=== PATIENT | female | born 1940 | race Caucasian/White ===

== ENCOUNTER 2024-07-04 17:52 | Emergency (ER) | payer MEDICARE, OTHER, SELFPAY ==
[2024-07-04] VITALS (8 sets, daily range): BP systolic 137–159; BP diastolic 77–122; PULSE 67–77; RESP 18–20; TEMP 36.3–36.8; O2SAT 95–99; BMI 22.6
--- NOTE | 2024-07-04 18:23 | CRLHL7_ITS ---
For Patients: As a result of the Century Cures Act, medical imaging exams and procedure reports are released immediately into your electronic medical record. You may view this report before your referring provider. If you have questions, please contact your health care provider. INDICATION: Right lower quadrant pain. TECHNIQUE: CT abdomen and pelvis acquired with 69 cc of Isovue 370 IV contrast. COMPARISON: CT abdomen and pelvis 06/04/2017. FINDINGS: Lower chest: Right lower quadrant pain Liver: Multiple cysts scattered throughout the liver, many of which are unchanged size. Some cysts have decreased in size since the prior exam. No suspicious mass. Gallbladder and bile ducts: Status post cholecystectomy. No abnormal biliary ductal dilatation. Pancreas: Unremarkable. No mass or inflammation. Spleen: Unremarkable. Normal in size. No masses. Adrenal glands: Unchanged small left adrenal nodules. Kidneys: Bilateral parapelvic cysts. Otherwise, unremarkable. GI tract: Moderate sigmoid colon diverticulosis. There is a short segment of small bowel incarcerated within a direct right inguinal hernia with a small volume of surrounding free fluid. There is fluid-filled, borderline dilated small bowel proximal to the hernia, compatible with early/developing small bowel obstruction. The appendix is not visualized. No pneumatosis. Mild mesenteric edema in the right lower quadrant. Vasculature: Normal caliber abdominal aorta with moderate to severe atherosclerotic calcification. Mesenteric arteries are patent. Lymph nodes: No lymphadenopathy. Peritoneum/Abdominal Wall: No free air or significant free fluid. Pelvis: Multiple small calcified fibroids. Bones: Unremarkable for age. IMPRESSION: Short-segment of incarcerated small bowel within a direct right inguinal hernia with findings compatible with early/developing small bowel obstruction. Small volume free fluid about the incarcerated small bowel segment could indicate a degree of strangulation. Recommend surgical consultation. Please note that all CT scans at this facility use dose modulation, iterative reconstruction, and/or weight-based dosing when appropriate to reduce radiation dose to as low as reasonably achievable. Dictated by Joseph Green MD @ 07/04/2024 7:39:34 PM (Electronically Signed)
[2024-07-04 18:47] LABS: Basophils Absolute Auto 0.02 K/uL (0.00-0.30); Basophils Percent Auto 0.3 % (0.0-3.0); Eosinophils Absolute Auto 0.01 K/uL (0.00-0.50); Eosinophils Percent Auto 0.2 % (0.0-7.0); Hematocrit 36.8 % (33.0-51.0); Immature Granulocytes Abs Auto 0.01 K/uL (0.00-0.30); Immature Granulocytes Pct Auto 0.2 %; Lymphocytes Percent Auto 14.5 % (20-44); Mean Corpuscular HGB Conc 33 gm/dL (32-36); Mean Corpuscular Hemoglobin 31 pg (26-34); Mean Corpuscular Volume 96 fL (80-100); Monocytes Percent Auto 6.5 % (0.0-11.0); Neutrophils Percent Auto 78.3 % (42.0-72.0); Platelet Count* 188 K/uL (140-440); RDW Coefficient of Variation % 12.9 % (11.5-15.5); Red Blood Count 3.83 m/uL (4.00-5.20); White Blood Count* 5.85 K/uL (4.50-11.00)
--- NOTE | 2024-07-04 19:01 | ED_ITS ---
HPI - General Adult General Chief complaint: Groin Pain <Maria Del Rosario Mcleod MD - Last Filed: 07/04/24 20:57> Stated complaint: Pain in groin, something popped herniasent by UC <Maria Del Rosario Mcleod MD - Last Filed: 07/04/24 20:57> Time Seen by Provider: 07/04/24 17:56 <Maria Del Rosario Mcleod MD - Last Filed: 07/04/24 20:57> Source: patient <Maria Del Rosario Mcleod MD - Last Filed: 07/04/24 20:57> Mode of arrival: ambulatory <Maria Del Rosario Mcleod MD - Last Filed: 07/04/24 20:57> Limitations: no limitations <Maria Del Rosario Mcleod MD - Last Filed: 07/04/24 20:57> History of Present Illness HPI narrative: 84-year-old female coming in today complaining of abdominal pain that started earlier today. Patient states that the pain is located over the entire abdomen. Nothing seems to make it better or worse. However, shortly prior to presenting to the emergency department she felt a sharp right lower quadrant pain. She is not quite sure how long it lasted but it has subsided now. When she was palpating over the sore area she noticed a lump in the right lower quadrant. She states that it is slightly sore, perhaps a 2/10 in intensity. She states that she felt nauseated earlier today and has any much today. She has not vomited. She denies any constipation or diarrhea, last bowel movement was this morning and was normal. She denies any urinary symptoms such as increased frequency, urgency or dysuria. She denies any blood in her urine or stool. She denies any fevers, no chills. She has been passing gas. Past medical history significant for hyperlipidemia, anxiety, hypothyroidism, diabetes - not insulin dependent. <Maria Del Rosario Mcleod MD - Last Filed: 07/04/24 2 0:57> Related Data Home medications: Home Medications ?Medication ?Instructions ?Recorded ?Confirmed atorvastatin 20 mg tablet 20 mg PO DAILY 04/09/24 04/09/24 bupropion HCl 150 mg 24 hr tablet, 150 mg PO DAILY 04/09/24 04/09/24 extended release cholecalciferol (vitamin D3) 625 625 mcg PO QWEEK 04/09/24 04/09/24 mcg (25,000 unit) capsule levothyroxine 50 mcg tablet 50 mcg PO DAILY 04/09/24 04/09/24 metformin 500 mg tablet,extended 500 mg PO BID 04/09/24 04/09/24 release 24 hr sertraline 50 mg tablet 50 mg PO DAILY 04/09/24 04/09/24 vit C 250 mg-vit E 90 mg-zinc 40 1 tab PO BID 04/09/24 04/09/24 mg-copper 1 [id number] capsule (PreserVision AREDS-2) <Maria Del Rosario Mcleod MD - Last Filed: 07/04/24 20:57> Allergies/adverse reactions: Allergies Allergy/AdvReac Type Severity Reaction Status Date / Time No Known Drug Allergies Allergy Verified 04/09/24 13:39 <Maria Del Rosario Mcleod MD - Last Filed: 07/04/24 20:57> Review of Systems Status of ROS: Reports: 10 or more systems reviewed and unremarkable except as noted in History and below <Maria Del Rosario Mcloed MD - Last Filed: 07/04/24 20:57> [facility] Surgical History: Surgical History (Updated 07/04/24 @ 21:18 by Cheryl Machado MD) History of umbilical hernia repair ?Z98.890 - Other specified postprocedural states (ICD-10) ?Z87.19 - Personal history of other diseases of the digestive system (ICD-10) History of appendectomy ?Z90.49 - Acquired absence of other specified parts of digestive tract (ICD- 10) History of cholecystectomy ?Z90.49 - Acquired absence of other specified parts of digestive tract (ICD- 10) <Maria Del Rosario Mcleod MD - Last Filed: 07/04/24 20:57> Social History: Social History Smoking Status: Former smoker How often do you have a drink containing alcohol: 4 or more times a week How many standard drinks containing alcohol do you have on a typical day: 1 or 2 AUDIT-C Alcohol total score: 4 Non-prescribed substance use: denies use <Maria Del Rosario Mcleod MD - Last Filed: 07/04/24 20:57> Exam Narrative: Exam Narrative: Well-nourished well-developed patient in no acute distress. Alert and oriented. Answers questions appropriately. Mood and affect are appropriate. Thoughts are goal oriented and rational. No tangential or magical thinking noted. Patient speaks in full sentences without needing to catch her breath. She does not appear ill or toxic. HEENT: Normocephalic atraumatic. Pupils are equally round reactive to light. Extraocular muscles are intact. Conjunctivae are moist without any icterus noted. Moist mucous membranes. Neck is soft. Cardiovascular: Heart is regular rate and rhythm S1 and S2 are present without any murmurs. Lungs: Clear to auscultation bilaterally no wheezes rhonchi or rales are appreciated. Patient takes deep breaths without any discomfort. Abdomen: Soft and nontender nondistended with normal bowel sounds. No guarding or rebound. Right lower quadrant mass appreciated- firm, minimal tenderness. Extremities: Bilateral lower extremities are without edema. Skin: Well perfused without any obvious rashes. <Maria Del Rosario Mcleod MD - Last Filed: 07/04/24 20:57> Const: Vital Signs, click to edit/add: Vital Signs - 24 hr 07/04/24 17:57 07/04/24 20:14 07/04/24 20:32 Temperature 98.3 F Pulse Rate 67 Pulse Rate [Left P ulse Oximeter] 73 Respiratory Rate 18 Blood Pressure Blood Pressure [Ri ght Upper Arm] 138/77 Pulse Oximetry 95 99 95 Oxygen Delivery Me thod Room Air 07/04/24 20:35 07/04/24 20:36 07/04/24 20:38 Temperature Pulse Rate 68 70 Pulse Rate [Left P ulse Oximeter] 69 Respiratory Rate 20 Blood Pressure 137/103 H 155/77 H Blood Pressure [Ri ght Upper Arm] 137/103 H Pulse Oximetry 98 95 98 Oxygen Delivery Me thod Room Air 07/04/24 20:42 07/04/24 20:52 Temperature 97.4 F L Pulse Rate 77 Pulse Rate [Left P ulse Oximeter] Respiratory Rate Blood Pressure 159/122 H Blood Pressure [Ri ght Upper Arm] Pulse Oximetry 99 Oxygen Delivery Me thod <Maria Del Rosario Mcleod MD - Last Filed: 07/04/24 20:57> Vital Signs, click to edit/add: Vital Signs - 24 hr 07/04/24 17:57 07/04/24 20:14 07/04/24 20:32 Temperature 98.3 F Pulse Rate 67 Pulse Rate [Left P ulse Oximeter] 73 Respiratory Rate 18 Blood Pressure Blood Pressure [Ri ght Upper Arm] 138/77 Pulse Oximetry 95 99 95 Oxygen Delivery Me thod Room Air 07/04/24 20:35 07/04/24 20:36 07/04/24 20:38 Temperature Pulse Rate 68 70 Pulse Rate [Left P ulse Oximeter] 69 Respiratory Rate 20 Blood Pressure 137/103 H 155/77 H Blood Pressure [Ri ght Upper Arm] 137/103 H Pulse Oximetry 98 95 98 Oxygen Delivery Me thod Room Air 07/04/24 20:42 07/04/24 20:52 Temperature 97.4 F L Pulse Rate 77 Pulse Rate [Left P ulse Oximeter] Respiratory Rate Blood Pressure 159/122 H Blood Pressure [Ri ght Upper Arm] Pulse Oximetry 99 Oxygen Delivery Me thod <Kwame Padilla MD - Last Filed: 07/04/24 21:53> Course Course ED Course: Labs were drawn: CBC is unremarkable. Chemistries are unremarkable. LFTs are normal. Normal CRP. Normal lipase. Abdominal CT showing an incarcerated inguinal hernia. Attempted to reduce it and was unsuccessful. Spoke to Dr. Strickland who requested that we try again. Dr. Moreira attempted to reduce it as well. At this point we started an IV and give the patient a dose of fentanyl which did relax her. Dr. Moreira then attempted to reduce the hernia 1 more time - this time seemed successful. We at this time will repeat the abd CT w/out contrast. Care transferred to Dr. Padilla at this time. <Maria Del Rosario Mcleod MD - Last Filed: 07/04/24 20:57> Vital Signs Vital signs: Initial Vital Signs Temperature 98.3 F 07/04/24 17:57 Temperature Source Temporal Artery Scan 07/04/24 17:57 Pulse Rate 73 07/04/24 17:57 Respiratory Rate 18 07/04/24 17:57 Blood Pressure 138/77 07/04/24 17:57 Blood Pressure Mean 97 07/04/24 17:57 Blood Pressure Position Supine 07/04/24 17:57 Pulse Oximetry 95 07/04/24 17:57 Oxygen Delivery Method Room Air 07/04/24 17:57 Vital Signs Temperature 98.3 F 07/04/24 17:57 Pulse Rate 73 07/04/24 17:57 Respiratory Rate 18 07/04/24 17:57 Blood Pressure 138/77 07/04/24 17:57 Pulse Oximetry 95 07/04/24 17:57 Oxygen Delivery Method Room Air 07/04/24 17:57 Temperature 97.4 F L 07/04/24 20:52 Pulse Rate 77 07/04/24 20:42 Respiratory Rate 20 07/04/24 20:38 Blood Pressure 159/122 H 07/04/24 20:42 Pulse Oximetry 99 07/04/24 20:42 Oxygen Delivery Method Room Air 07/04/24 20:38 <Maria Del Rosario Mcleod MD - Last Filed: 07/04/24 20:57> Initial Vital Signs Temperature 98.3 F 07/04/24 17:57 Temperature Source Temporal Artery Scan 07/04/24 17:57 Pulse Rate 73 07/04/24 17:57 Respiratory Rate 18 07/04/24 17:57 Blood Pressure 138/77 07/04/24 17:57 Blood Pressure Mean 97 07/04/24 17:57 Blood Pressure Position Supine 07/04/24 17:57 Pulse Oximetry 95 07/04/24 17:57 Oxygen Delivery Method Room Air 07/04/24 17:57 Vital Signs Temperature 98.3 F 07/04/24 17:57 Pulse Rate 73 07/04/24 17:57 Respiratory Rate 18 07/04/24 17:57 Blood Pressure 138/77 07/04/24 17:57 Pulse Oximetry 95 07/04/24 17:57 Oxygen Delivery Method Room Air 07/04/24 17:57 Temperature 97.4 F L 07/04/24 20:52 Pulse Rate 77 07/04/24 20:42 Respiratory Rate 20 07/04/24 20:38 Blood Pressure 159/122 H 07/04/24 20:42 Pulse Oximetry 99 07/04/24 20:42 Oxygen Delivery Method Room Air 07/04/24 20:38 <Kwame Padilla MD - Last Filed: 07/04/24 21:53> Medications Administered Medications: Discontinued Medications Generic Name Dose Route Start Last Admin Trade Name Freq PRN Reason Stop Dose Admin Fentanyl 25 mcg 07/04/24 20:10 07/04/24 20:22 Fentanyl 100 Mcg/2 Ml Inj IVP 07/04/24 20:11 25 mcg ONCE ONE Administration <Maria Del Rosario Mcleod MD - Last Filed: 07/04/24 20:57> Discontinued Medications Generic Name Dose Route Start Last Admin Trade Name Jake PRN Reason Stop Dose Admin Fentanyl 25 mcg 07/04/24 20:10 07/04/24 20:22 Fentanyl 100 Mcg/2 Ml Inj IVP 07/04/24 20:11 25 mcg ONCE ONE Administration <Kwame Padilla MD - Last Filed: 07/04/24 21:53> Medical Decision Making [facility] Narrative Medical decision making narrative: Randy -- Received patient at change of shift pending reduction of incarcerated inguinal hernia right side. I did perform this reduction. Patient did report feeling improved. Pending post reduction pelvis CT. Did personally review these images as well; appears to have reduced bowel now. Some edematous change possibly fluid remaining. Discussed with General surgery arriving to evaluate. Confirming anticipated reduction Radiology over-read below INDICATION: Post manual reduction. TECHNIQUE: CT abdomen and pelvis without contrast. COMPARISON: CT abdomen and pelvis from the same day. FINDINGS: There has been interval reduction of the previously seen right direct inguinal hernia. A small volume of free fluid remains in the right inguinal canal. There are a few fluid-filled slightly dilated loops of small bowel in the pelvis. The remainder of the exam is unchanged. IMPRESSION: 1. Interval reduction of the previously seen right direct inguinal hernia. No bowel obstruction visualized. 2. Few fluid-filled, slightly dilated loops of small bowel within the pelvis compatible with residual sequela of the previously seen bowel obstruction. Plan at this point per patient preference will be to return home with abdominal binder. Schedule outpatient surgery after the weekend. <Kwame Padilla MD - Last Filed: 07/04/24 21:53> Medical Records Medical records reviewed: Yes I reviewed the patient's medical records <Kwame Padilla MD - Last Filed: 07/04/24 21:53> Lab Data Lab results reviewed: Yes I reviewed the patient's lab results <Kwame Padilla MD - Last Filed: 07/04/24 21:53> Labs: Lab Results 07/04/24 07/04/24 Range/Units 18:30 18:37 WBC 5.85 (4.50-11.00) K/uL RBC 3.83 L (4.00-5.20) m/uL Hgb 12.0 (12.0-16.0) gm/dL Hct 36.8 (33.0-51.0) % MCV 96 (80-100) fL MCH 31 (26-34) pg MCHC 33 (32-36) gm/dL RDW Coeff of Gertrudis 12.9 (11.5-15.5) % Plt Count 188 (140-440) K/uL Neut % (Auto) 78.3 H (42.0-72.0) % Lymph % (Auto) 14.5 L (20-44) % Grundy % (Auto) 6.5 (0.0-11.0) % Eos % (Auto) 0.2 (0.0-7.0) % Baso % (Auto) 0.3 (0.0-3.0) % Neut # (Auto) 4.60 (1.7-7.0) K/uL Lymph # (Auto) 0.80 L (0.90-2.90) K/uL Grundy # (Auto) 0.40 (0.00-0.90) K/UL Eos # (Auto) 0.01 (0.00-0.50) K/uL Baso # (Auto) 0.02 (0.00-0.30) K/uL Abs Immat Gran (auto) 0.01 (0.00-0.30) K/uL Imm/Tot Granulo (auto) 0.2 % Sodium 134 L (135-149) mmol/L Potassium 3.8 (3.6-5.1) mmol/L Chloride 105 (96-114) mmol/L Carbon Dioxide 24 (20-32) mmol/L Anion Gap 5 L (7-15) mEq/L BUN 12 (7-30) mg/dL Creatinine 0.7 (0.5-1.5) mg/dL Estimated Creat Clear 37.80 Estimated GFR 84 ml/min Glucose 119 H (60-115) mg/dL Calcium 9.0 (8.4-10.6) mg/dL Total Bilirubin 0.5 (0.1-1.5) mg/dL Direct Bilirubin 0.0 (0.0-0.5) mg/dL AST 21 (12-35) U/L ALT 13 (4-35) U/L Alkaline Phosphatase 82 (40-150) U/L C-Reactive Protein < 0.5 L (0.5-1.0) mg/dL Total Protein 6.2 (6.0-8.3) g/dL Albumin 4.0 (3.3-5.0) g/dL Lipase 83 (23-300) U/L POC Creatinine 0.8 (0.6-1.3) mg/dl <Maria Del Rosario Mcleod MD - Last Filed: 07/04/24 20:57> Lab Results 07/04/24 07/04/24 Range/Units 18:30 18:37 WBC 5.85 (4.50-11.00) K/uL RBC 3.83 L (4.00-5.20) m/uL Hgb 12.0 (12.0-16.0) gm/dL Hct 36.8 (33.0-51.0) % MCV 96 (80-100) fL MCH 31 (26-34) pg MCHC 33 (32-36) gm/dL RDW Coeff of Gertrudis 12.9 (11.5-15.5) % Plt Count 188 (140-440) K/uL Neut % (Auto) 78.3 H (42.0-72.0) % Lymph % (Auto) 14.5 L (20-44) % Grundy % (Auto) 6.5 (0.0-11.0) % Eos % (Auto) 0.2 (0.0-7.0) % Baso % (Auto) 0.3 (0.0-3.0) % Neut # (Auto) 4.60 (1.7-7.0) K/uL Lymph # (Auto) 0.80 L (0.90-2.90) K/uL Grundy # (Auto) 0.40 (0.00-0.90) K/UL Eos # (Auto) 0.01 (0.00-0.50) K/uL Baso # (Auto) 0.02 (0.00-0.30) K/uL Abs Immat Gran (auto) 0.01 (0.00-0.30) K/uL Imm/Tot Granulo (auto) 0.2 % Sodium 134 L (135-149) mmol/L Potassium 3.8 (3.6-5.1) mmol/L Chloride 105 (96-114) mmol/L Carbon Dioxide 24 (20-32) mmol/L Anion Gap 5 L (7-15) mEq/L BUN 12 (7-30) mg/dL Creatinine 0.7 (0.5-1.5) mg/dL Estimated Creat Clear 37.80 Estimated GFR 84 ml/min Glucose 119 H (60-115) mg/dL Calcium 9.0 (8.4-10.6) mg/dL Total Bilirubin 0.5 (0.1-1.5) mg/dL Direct Bilirubin 0.0 (0.0-0.5) mg/dL AST 21 (12-35) U/L ALT 13 (4-35) U/L Alkaline Phosphatase 82 (40-150) U/L C-Reactive Protein < 0.5 L (0.5-1.0) mg/dL Total Protein 6.2 (6.0-8.3) g/dL Albumin 4.0 (3.3-5.0) g/dL Lipase 83 (23-300) U/L POC Creatinine 0.8 (0.6-1.3) mg/dl <Kwame Padilla MD - Last Filed: 07/04/24 21:53> Imaging Data CT scan - abdomen: Attestation: I have reviewed the pertinent imaging results. <Maria Del Rosario Mcleod MD - Last Filed: 07/04/24 20:57> Radiologist's impression: TECHNIQUE: CT abdomen and pelvis acquired with 69 cc of Isovue 370 IV contrast. COMPARISON: CT abdomen and pelvis 06/04/2017. FINDINGS: Lower chest: Right lower quadrant pain Liver: Multiple cysts scattered throughout the liver, many of which are unchanged size. Some cysts have decreased in size since the prior exam. No suspicious mass. Gallbladder and bile ducts: Status post cholecystectomy. No abnormal biliary ductal dilatation. Pancreas: Unremarkable. No mass or inflammation. Spleen: Unremarkable. Normal in size. No masses. Adrenal glands: Unchanged small left adrenal nodules. Kidneys: Bilateral parapelvic cysts. Otherwise, unremarkable. GI tract: Moderate sigmoid colon diverticulosis. There is a short segment of small bowel incarcerated within a direct right inguinal hernia with a small volume of surrounding free fluid. There is fluid-filled, borderline dilated small bowel proximal to the hernia, compatible with early/developing small bowel obstruction. The appendix is not visualized. No pneumatosis. Mild mesenteric edema in the right lower quadrant. Vasculature: Normal caliber abdominal aorta with moderate to severe atherosclerotic calcification. Mesenteric arteries are patent. Lymph nodes: No lymphadenopathy. Peritoneum/Abdominal Wall: No free air or significant free fluid. Pelvis: Multiple small calcified fibroids. Bones: Unremarkable for age. IMPRESSION: Short-segment of incarcerated small bowel within a direct right inguinal hernia with findings compatible with early/developing small bowel obstruction. Small volume free fluid about the incarcerated small bowel segment could indicate a degree of strangulation. Recommend surgical consultation. <Maria Del Rosario Mcleod MD - Last Filed: 07/04/24 20:57> Discharge Plan Discharge Clinical Impression: Incarcerated right inguinal hernia <Maria Del Rosario Mcleod MD - Last Filed: 07/04/24 20:57> Additional Instructions: Expect a call regarding follow-up for surgery. Wear this abdominal binder as per Dr. Machado's recommendations. Return for new and painful swelling, associated vomiting, marked increase in pain, fever. <Maria Del Rosario Mcleod MD - Last Filed: 07/04/24 20:57> Prescriptions: No Action bupropion HCl 150 mg tablet extended release 24 hr 150 mg PO DAILY sertraline 50 mg tablet 50 mg PO DAILY metformin 500 mg tablet extended release 24 hr 500 mg PO BID levothyroxine 50 mcg tablet 50 mcg PO DAILY atorvastatin 20 mg tablet 20 mg PO DAILY PreserVision AREDS-2 250-90-40-1 mg capsule 1 tab PO BID cholecalciferol (vitamin D3) 625 mcg (25,000 unit) capsule 625 mcg PO QWEEK <Maria Del Rosario Mcleod MD - Last Filed: 07/04/24 20:57> Follow Up/Referrals: Renzo Richardson MD [Primary Care Provider] - <Maria Del Rosario Mcleod MD - Last Filed: 07/04/24 20:57> Stand Alone Forms: MyHealth Info Instructions <Maria Del Rosario Mcleod MD - Last Filed: 07/04/24 20:57>
[2024-07-04 19:02] LABS: Creatinine, Point-of-Care* 0.8 mg/dl (0.6-1.3)
[2024-07-04 19:03] LABS: Chloride* 105 mmol/L (96-114); Slide Review Reflex No
[2024-07-04 19:04] LABS: Potassium* 3.8 mmol/L (3.6-5.1); Sodium* 134 mmol/L (135-149)
[2024-07-04 19:06] LABS: Creatinine* 0.7 mg/dL (0.5-1.5); Estimated Glomerular Filt Rate 84 ml/min
[2024-07-04 19:07] LABS: Alanine Aminotransferase* 13 U/L (4-35); Alkaline Phosphatase* 82 U/L (40-150); Anion Gap 5 mEq/L (7-15); Aspartate Amino Transferase* 21 U/L (12-35); Bilirubin Total* 0.5 mg/dL (0.1-1.5); Blood Urea Nitrogen* 12 mg/dL (7-30); Carbon Dioxide* 24 mmol/L (20-32); Glucose* 119 mg/dL (60-115); Lipase* 83 U/L (23-300); Total Protein* 6.2 g/dL (6.0-8.3)
[2024-07-04 19:10] LABS: C Reactive Protein* < 0.5 mg/dL (0.5-1.0)
--- OUTSIDE RECORDS SUMMARY | 2024-07-04 19:18 | XMS_ITS | Clinical Summary ---
Author Organization [employer] [facility] Address [place], [place] [address] Care Team Providers Care Fish Trapper Name Role Phone Renzo Richardson MD Primary Care Provider [phone] Allergies No known active allergies Medications Medication Sig Dispensed Refills Start Date End Date Status Vit A,C,Q-Hjdd-Xjoajo (PRESERVISION AREDS) [id number] sexd-ri-zosu capIndications:Macul ar degeneration Take by mouth. 0 06/03/2017 Activ e loperamide (IMODIUM A-D) 2 mg tabletIndications:Lo ose stools Take 2 mg daily as needed (usually takes 2 mg every other day) 0 05/03/2018 Active cholecalciferol (VITAMIN D-3) 2,000 unit capsule Take 1 capsule by mouth once daily. 0 11/07/2020 Active atorvastatin (LIPITOR) 20 mg tabletIndications:Ot her hyperlipidemia Take 1 Tablet (20 mg) by mouth once daily. 90 Tablet 3 08/10/2023 Active buPROPion (WELLBUTRIN XL) 150 mg Extended-Release tabletIndications:Dy sthymic disorder Take 1 Tablet (150 mg) by mouth every morning. 90 Tablet 3 08/10/2023 Active Additional Information Patient taking differently:150 mg OralDAILY, Reported on 07/04/2024 ferrous sulfate 325 mg delayed release tabletIndications:An emia of unknown etiology Take 1 Tablet (325 mg) by mouth once daily with a meal. 90 Tablet 3 08/10/2023 Active levothyroxine (SYNTHROID) 50 mcg tabletIndications:Hy pothyroidism, unspecified type Take 1 Tablet (50 mcg) by mouth before breakfast. 90 Tablet 3 08/10/2023 Active metFORMIN (GLUCOPHAGE XR) 500 mg Extended-Release tabletIndications:Di abetes mellitus without complication (HC) Take 2 Tablets (1,000 mg) by mouth once daily. 180 Tablet 3 08/10/2023 Active sertraline (ZOLOFT) 50 mg tabletIndications:Dy sthymic disorder Take 1 Tablet (50 mg) by mouth every morning. 90 Tablet 3 08/10/2023 Active celecoxib (CELEBREX) 200 mg capsuleIndications:K nee pain, unspecified chronicity, unspecified laterality TAKE ONE CAPSULE BY MOUTH DAILY NEEDED 30 Capsule 12/10/2023 Active omeprazole (PRILOSEC) 20 mg Delayed-Release capsuleIndications:G astroesophageal reflux disease, unspecified whether esophagitis present Take 1 Capsule (20 mg) by mouth once daily before a meal. 90 Capsule 1 03/19/2024 Active clotrimazole 1 % ointIndications:Cand idal intertrigo Apply topically to affected area(s). 56.7 g 1 07/04/2024 Active clotrimazole (LOTRIMIN) 1 % creamIndications:Can didal intertrigo Apply topically to affected area(s) two times daily. 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 Responded to Indocin. Anemia of unknown etiology 05/03/2018 Anxiety 10/05/2017 Vitamin D deficiency 06/11/2016 Acquired hypothyroidism 04/15/2016 Colon polyps 04/30/2008 Overview (10/07/2020): Colonoscopy 06/2009 polyps repeat in 3 years Colonoscopy 06/2012 polyp repeat in 5 years Colonoscopy 06/2017 polyps repeat in 3 years Colonoscopy 09/2020 multiple polyps, repeat in 3 years Esophageal reflux 04/14/2007 Overview (06/24/2017): EGD 06/2017 normal Osteoarthrosis, unspecified whether generalized or localized, unspecified site 04/14/2007 Other and unspecified hyperlipidemia 04/14/2007 Dysthymic disorder 04/14/2007 Overview (04/14/2007): Depression with anxiety DIABETES TYPE II WITHOUT COMPLICATIONS OR UNSPEC IFIED 01/17/2004 Encounters Date Type Department Care Team Description 07/04/2024 10:25 AM CDT Office Visit [facility] [address] [place] [address] Nichol Gonzales MD Rash (Under Left breast, zinc oxide is helping for itching, daughter has the same issue, spread to upper abdomen/ ) 07/04/2024 Nurse Triage [facility] [address] [place] [address] Renzo Richardson MD Pelvis Pain/problem 07/04/2024 Telephone [facility] [address] [place] [address] Nichol Gonzlaes MD Medication Management (clotrimazole 1 % oint) 07/04/2024 Travel 06/29/2024 11:05 AM CDT Nurse/Clinic Staff Only [facility] [address] [place] [address] Immunization/Injecti on; Immunization/Injecti on 06/29/2024 Travel from Last 3 Months Immunizations Name Administration Dates Next Due AMB Influenza, IIV3 (Age >=3 years)(Flu Clinic Only) 06/19/2012,08/21/2008 AMB Influenza, IIV4 PF (=>6 mos Flulaval,Fluzone Fluarix)(Flu Clinic Only) 06/13/2015 Amb Influenza, Inact (High-d ose) (Flu Clinic Only) 08/22/2014 COVID-19 VACCINE SPIKEVAX (M ODERNA 50MCG/0.5ML) 12YO+ PFS 06/29/2024,08/10/2023 COVID-19 vaccine (CleverSet-Bio NTech 30mcg/0.3mL) 12YO+ BIVALENT PF, MDV 09/20/2022 COVID-19 vaccine (MyOtherDrive 30mcg/0.3mL) PF, MDV 07/08/2021,11/05/2020,10/15/2020 Influenza A (H1N1), Inactivated 09/29/2009 Influenza A (H1N1), Inactiva lowell (Age >=3 Years) 09/29/2009 Influenza, High-dose Inactivated 05/13/2017,05/15,08/22/2014 Influenza, IIV3 (Age 6-35 mos) 05/24/2011,2009 Influenza, IIV3 (Age >=3 years) 06/06/20 13,06/19/2012,05/24/2011,2010,09/29/2009,08/21/2008,07/20/2007,1 ,07/19/2005,06/24/2004 Influenza, IIV4 06/13/2015 Influenza, Inactivated AIIV4 (Age 65+ Years) Preserv Free 08/10/2023,07/21/2022,07/08/2021,2019 Influenza, Inactivated IIV3 (Age 65+ Years) Preserv Free 06/29/2024,06/25/2019,07/17/2018 Pneumococcal Poly,23-Valent (Pneumovax) 06/08/2017 Pneumococcal conj 13-Valent (Prevnar 13) 06/11/2016 Td (Age >=7 Years) 04/09/2005 Td, Preservative Free (age > = 7 Years) 04/09/2005 Zoster (Zostavax-ZVL, live) 09/10/2013 Family History Medical History Relation Name Comments Heart Disease Brother 1 right side hea rt failure--02/2008; at 81 of CHF exac Dementia Brother 2 Heart Disease Brother 2 another brothe r who has CABG; One brother with a stent Kidney cancer Brother 2 of Kidney cancer at 85/ Arthritis Father Cancer Father Pancreatic Heart Disease Father of MD at 67 Arthritis Mother Other Mother Primary Biliary Cirrhosis at 79 Cancer-breast No Family History Relation Name Status Comments Brother 1 Brother 2 Father Mother Social History Tobacco Use Types Packs/Day Years Used Date Smoking Tobacco: Former Cigarettes 1 40 1 09/12/1957 - 07/13/1998 Smokeless Tobacco: Never Tobacco Cessation:Counseling Given: Not Answered Alcohol Use Standard Drinks/Week Comments Not Currently 0 (1 standard drink = 0.6 oz pur e alcohol) Mainly beer PHQ-2 Answer Date Recorded PHQ-2 TOTAL SCORE 1 08/10/2023 Social Connections Answer Date Recorded Frequency of Communication with Friends and Fami ly 0 06/02/2023 Financial Resource Strain Answer Date R ecorded Difficulty of Paying Living Expenses 3 06/02/2023 Difficulty of Paying Living Expenses Not on file 06/02/2023 Food Insecurity Answer Date Recorded Worried About Running Out of Food in the Last Ye ar 1 06/02/2023 Transportation Needs Answer Date Record ed Lack of Transportation (Medical) 1 06/02/2023 Housing Stability Answer Date Recorded Unable to Pay for Housing in the Last Year 1 06/02/2023 Sex and Gender Information Value Date Recorded Sex Assigned at Female 07/07/2021 9:35 AM CDT Gender Identity Not on file Sexual Orientation Not on file Obstetrics History Last Filed Vital Signs Vital Sign Reading Time Taken Comments Blood Pressure 110/65 07/04/2024 10:31 AM CDT Pulse 80 07/04/2024 10:31 AM CDT Temperature 36.8 ??C (98.3 ??F) 07/04/2024 10:31 AM C DT Respiratory Rate - - Oxygen Saturation 98% 07/04/2024 10:31 AM CDT Inhaled Oxygen Concentration - - Weight 63.2 kg (139 lb 6.4 oz) 07/04/2024 10:31 AM CDT Height 165.7 cm (5' 5.24) 08/10/2023 1:22 PM CS T Body Mass Index 23.03 08/10/2023 1:22 PM 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 Plan of Treatment Health Maintenance Due Date Last Done Comments Tdap 1951 RSV vaccine for adults or (1 - 1-dose 75+ series) 2013 Zoster (shingles) series for age 50+ (2 of 3) 11/05/2013 09/10/2013 Tetanus booster 04/09/2015 04/09/2005, 04/09/2005 BMI (ht and wt on same day) for age 18+ 08/10/2024 08/10/2023, 01/01/2022, 12/02/2021, Additional history exists Depression screening for age 12+ 08/10/2024 08/10/2023, 01/28/2023, 09/21/2022, Additional history exists Medicare Wellness for age 65+ 08/10/2024, 12/02/2021, 06/01/2019, Additional history exists DEXA/DXA scan for age 65+ Completed 02/11/2009 Pneumococcal series for age 65+ Completed 7, 06/11/2016 COVID-19 vaccine series Completed 06/29/20 24, 08/10/2023, 09/20/2022, Additional history exists Influenza for age 65+ Completed 06/29/2024 , 08/10/2023, 07/21/2022, Additional history exists Procedures Procedure Name Priority Date/Time Associated Diagnosis Comments XR DXA BONE DENSITY 2 SITES AXIAL Routine 02/11/2009 9:08 AM CDT Osteopenia from Last 3 Months or Most Recently Relevant to Health Maintenance Results * XR DEXA BONE DENSITY 2 SITES (02/11/2009 9:08 AM CDT) Anatomical Region Laterality Modality Spine, HIPS, HIPL, HIPR Other 02/11/2009 9:08 AM CDT Narrative 02/14/2009 1:58 PM CDT Please see scanned document for results of this study. Procedure Note Celine Kandy D - 02/14/2009 Please see scanned document for results of this study. Renzo Richardson MD DEXA from Last 3 Months or Most Recently Relevant to Health Maintenance Care Teams Fish Trapper Relationship Specialty Start Date End Date Renzo Richardson MD [address] [place] [address] [facility] - General 02/17/06
[2024-07-04] MEDS: fentaNYL 100 MCG/2 ML inj 25 MCG IVP (20:22)
--- NOTE | 2024-07-04 20:46 | CRLHL7_ITS ---
For Patients: As a result of the Century Cures Act, medical imaging exams and procedure reports are released immediately into your electronic medical record. You may view this report before your referring provider. If you have questions, please contact your health care provider. INDICATION: Post manual reduction. TECHNIQUE: CT abdomen and pelvis without contrast. COMPARISON: CT abdomen and pelvis from the same day. FINDINGS: There has been interval reduction of the previously seen right direct inguinal hernia. A small volume of free fluid remains in the right inguinal canal. There are a few fluid-filled slightly dilated loops of small bowel in the pelvis. The remainder of the exam is unchanged. IMPRESSION: 1. Interval reduction of the previously seen right direct inguinal hernia. No bowel obstruction visualized. 2. Few fluid-filled, slightly dilated loops of small bowel within the pelvis compatible with residual sequela of the previously seen bowel obstruction. Please note that all CT scans at this facility use dose modulation, iterative reconstruction, and/or weight-based dosing when appropriate to reduce radiation dose to as low as reasonably achievable. Dictated by Joseph Green MD @ 07/04/2024 9:41:44 PM (Electronically Signed)
--- NOTE | 2024-07-04 20:54 | CRLHL7_ITS ---
For Patients: As a result of the Century Cures Act, medical imaging exams and procedure reports are released immediately into your electronic medical record. You may view this report before your referring provider. If you have questions, please contact your health care provider. INDICATION: Pain. TECHNIQUE: Chest 1 view. COMPARISON: CT abdomen and pelvis from the same day. FINDINGS: Cardiovascular and mediastinum: Heart size and vasculature are normal in caliber and appearance. Lungs and pleural spaces: Lungs are clear. No pleural effusion, or pneumothorax. Bones and soft tissues: Unremarkable for age. IMPRESSION: No evidence of an acute pulmonary process. Dictated by Joseph Green MD @ 07/04/2024 9:33:42 PM (Electronically Signed)
--- NOTE | 2024-07-04 21:13 | P.GSCN_ITS ---
History of Present Illness Consult details Date Seen: 07/04/24 Consult date: 07/04/24 Narrative: 84-year-old female presented to emergency room with right groin mass. Patient felt great when she woke up in the morning and around lunchtime felt crampy lower abdominal pain. She felt hungry and had a sandwich around 2:30 p.m.. She felt that her crampy pain has improved but she was feeling her right groin for some reason and felt a bulge in the right groin. She was not passing gas at home but in the emergency room past gas. She has not had anything like this before. She was not aware of having hernia. I personally reviewed her workup in the emergency room. She was found to have normal WBC. An abdominal CT was obtained that showed an incarcerated right inguinal hernia containing a knuckle of small intestine. There was also small fluid in the right inguinal area. The emergency room doctors attempted to reduce this hernia several times. Review of Systems Narrative: General: no fevers HENT: no problems swallowing CV: no shortness of breath Resp: no cough GI: No nausea, vomiting, abdominal pain : no dysuria, no increased urinary frequency, no hematuria Skin: no new rashes Musculoskeletal: no back pain Neuro: no muscle weakness Psyche: no depression, no anxiety PFSH PFSH Surgical History (Updated 07/04/24 @ 21:18 by Cheryl Machado MD) History of umbilical hernia repair ?Z98.890 - Other specified postprocedural states (ICD-10) ?Z87.19 - Personal history of other diseases of the digestive system (ICD-10) History of appendectomy ?Z90.49 - Acquired absence of other specified parts of digestive tract (ICD- 10) History of cholecystectomy ?Z90.49 - Acquired absence of other specified parts of digestive tract (ICD- 10) Social History Smoking Status: Former smoker How often do you have a drink containing alcohol: 4 or more times a week How many standard drinks containing alcohol do you have on a typical day: 1 or 2 AUDIT-C Alcohol total score: 4 Non-prescribed substance use: denies use Meds Home Medications and Allergies Home Medications ?Medication ?Instructions ?Recorded ?Confirmed ?Type atorvastatin 20 mg tablet 20 mg PO DAILY 04/09/24 04/09/24 History bupropion HCl 150 mg 24 hr tablet, 150 mg PO DAILY 04/09/24 04/09/24 History extended release cholecalciferol (vitamin D3) 625 625 mcg PO QWEEK 04/09/24 04/09/24 History mcg (25,000 unit) capsule levothyroxine 50 mcg tablet 50 mcg PO DAILY 04/09/24 04/09/24 History metformin 500 mg tablet,extended 500 mg PO BID 04/09/24 04/09/24 History release 24 hr sertraline 50 mg tablet 50 mg PO DAILY 04/09/24 04/09/24 History vit C 250 mg-vit E 90 mg-zinc 40 1 tab PO BID 04/09/24 04/09/24 History mg-copper 1 te-wzjdat-axrqqh capsule (PreserVision AREDS-2) Allergies Allergy/AdvReac Type Severity Reaction Status Date / Time No Known Drug Allergies Allergy Verified 04/09/24 13:39 Exam Narrative: Exam Narrative: General appearance: Alert, cooperative, and in no distress Pulmonary: Chest symmetric, lungs clear bilaterally Cardiovascular Heart: Regular rate and rhythm, S1, S2, no murmurs/rubs/gallops Gastrointestinal Abdominal: soft, not distended, not tender to palpation or percussion. In the right inguinal area there is soft tissue swelling noted over the lateral inguinal canal but no masses palpable. Skin: Normal skin color, texture, and turgor. No rashes or lesions. Psychiatric: Alert, cooperative, normal affect. Const: Vital Signs, click to edit/add: Vital Signs - 24 hr 07/04/24 17:57 07/04/24 20:14 07/04/24 20:32 Temperature 98.3 F Pulse Rate 67 Pulse Rate [Left P ulse Oximeter] 73 Respiratory Rate 18 Blood Pressure Blood Pressure [Ri ght Upper Arm] 138/77 Pulse Oximetry 95 99 95 Oxygen Delivery Me thod Room Air 07/04/24 20:35 07/04/24 20:36 07/04/24 20:38 Temperature Pulse Rate 68 70 Pulse Rate [Left P ulse Oximeter] 69 Respiratory Rate 20 Blood Pressure 137/103 H 155/77 H Blood Pressure [Ri ght Upper Arm] 137/103 H Pulse Oximetry 98 95 98 Oxygen Delivery Me thod Room Air 07/04/24 20:42 07/04/24 20:52 Temperature 97.4 F L Pulse Rate 77 Pulse Rate [Left P ulse Oximeter] Respiratory Rate Blood Pressure 159/122 H Blood Pressure [Ri ght Upper Arm] Pulse Oximetry 99 Oxygen Delivery Me thod Results Labs Labs: Abnormal lab results 07/04/24 Range/Units 18:37 RBC 3.83 L (4.00-5.20) m/uL Neut % (Auto) 78.3 H (42.0-72.0) % Lymph % (Auto) 14.5 L (20-44) % Lymph # (Auto) 0.80 L (0.90-2.90) K/uL Sodium 134 L (135-149) mmol/L Anion Gap 5 L (7-15) mEq/L Glucose 119 H (60-115) mg/dL C-Reactive Protein < 0.5 L (0.5-1.0) mg/dL Diabetes panel 07/04/24 Range/Units 18:37 Sodium 134 L (135-149) mmol/L Potassium 3.8 (3.6-5.1) mmol/L Chloride 105 (96-114) mmol/L Carbon Dioxide 24 (20-32) mmol/L BUN 12 (7-30) mg/dL Creatinine 0.7 (0.5-1.5) mg/dL Glucose 119 H (60-115) mg/dL Calcium 9.0 (8.4-10.6) mg/dL AST 21 (12-35) U/L ALT 13 (4-35) U/L Alkaline Phosphatase 82 (40-150) U/L Total Protein 6.2 (6.0-8.3) g/dL Albumin 4.0 (3.3-5.0) g/dL Calcium panel 07/04/24 Range/Units 18:37 Calcium 9.0 (8.4-10.6) mg/dL Albumin 4.0 (3.3-5.0) g/dL Pituitary panel 07/04/24 Range/Units 18:37 Sodium 134 L (135-149) mmol/L Potassium 3.8 (3.6-5.1) mmol/L Chloride 105 (96-114) mmol/L Carbon Dioxide 24 (20-32) mmol/L BUN 12 (7-30) mg/dL Creatinine 0.7 (0.5-1.5) mg/dL Glucose 119 H (60-115) mg/dL Calcium 9.0 (8.4-10.6) mg/dL Adrenal panel 07/04/24 Range/Units 18:37 Sodium 134 L (135-149) mmol/L Potassium 3.8 (3.6-5.1) mmol/L Chloride 105 (96-114) mmol/L Carbon Dioxide 24 (20-32) mmol/L BUN 12 (7-30) mg/dL Creatinine 0.7 (0.5-1.5) mg/dL Glucose 119 H (60-115) mg/dL Calcium 9.0 (8.4-10.6) mg/dL Total Bilirubin 0.5 (0.1-1.5) mg/dL AST 21 (12-35) U/L ALT 13 (4-35) U/L Alkaline Phosphatase 82 (40-150) U/L Total Protein 6.2 (6.0-8.3) g/dL Albumin 4.0 (3.3-5.0) g/dL All other labs normal. Progress Note:A&P Assessment and plan (1) Incarcerated right inguinal hernia: Status: Acute Assessment and Plan: 84-year-old female presented to emergency room with incarcerated right inguinal hernia. I discussed with the patient the etiology of hernias and their natural progression. Patient's hernia was reduced in the emergency room after multiple attempts. Patient's clinical exam currently is without the right inguinal bulge. We obtained a repeat CT scan that shows some fluid in the right inguinal area with reduced bowel. The options of discharge to home versus observation in the hospital overnight were discussed with the patient. Patient elected to go home tonight. I recommended to avoid strenuous activity and heavy lifting. Patient should apply ice over the right groin. We also wrapped her lower abdomen with an Salas wrap to remind her to be vigilant about heavy lifting. We will contact the patient tomorrow to schedule her for surgery next week.
== END 2024-07-04 22:06 | disposition home or self-care (01) ==
PROVIDERS: Family Medicine; Emergency Provider Family Medicine; PCP Family Medicine
DX: K40.31 Unilateral inguinal hernia, with obstruction, without gangrene, recurrent (principal)
CPT/HCPCS: 36415; 71045; 74176; 74177; 80048; 80076; 81001; 82565; 83690; 85025; 86140; 87086; 94761; 99284; J3010; Q9967

== ENCOUNTER 2024-07-09 07:59 | Day surgery (SDC) | payer MEDICARE, OTHER, SELFPAY ==
--- OUTSIDE RECORDS SUMMARY | 2024-07-09 08:03 | XMS_ITS | Clinical Summary ---
Author Organization [facility] Address [place], [place] [address] Care Team Providers Care Loading Unit Tool Setter Name Role Phone Renzo Richardson MD Primary Care Provider [phone]- [phone] Allergies No known active allergies Medications Medication Sig Dispensed Refills Start Date End Date Status Vit A,C,F-Ylid-Khxtza (PRESERVISION AREDS) 14320-182-200 szuo-wu-wloa capIndications:Macu lar degeneration Take by mouth. 0 06/03/2017 Acti ve loperamide (IMODIUM A-D) 2 mg tabletIndications:L oose stools Take 2 mg daily as needed (usually takes 2 mg every other day) 0 05/03/2018 Active cholecalciferol (VITAMIN D-3) 2,000 unit capsule Take 1 capsule by mouth once daily. 0 11/07/2020 Active atorvastatin (LIPITOR) 20 mg tabletIndications:O ther hyperlipidemia Take 1 Tablet (20 mg) by mouth once daily. 90 Tablet 3 08/10/2023 Active buPROPion (WELLBUTRIN XL) 150 mg Extended-Release tabletIndications:D ysthymic disorder Take 1 Tablet (150 mg) by mouth every morning. 90 Tablet 3 08/10/2023 Active Additional Information Patient taking differently:150 mg OralDAILY, Reported on 07/04/2024 ferrous sulfate 325 mg delayed release tabletIndications:A nemia of unknown etiology Take 1 Tablet (325 mg) by mouth once daily with a meal. 90 Tablet 3 08/10/2023 Active levothyroxine (SYNTHROID) 50 mcg tabletIndications:H ypothyroidism, unspecified type Take 1 Tablet (50 mcg) by mouth before breakfast. 90 Tablet 3 08/10/2023 Active metFORMIN (GLUCOPHAGE XR) 500 mg Extended-Release tabletIndications:D iabetes mellitus without complication (HC) Take 2 Tablets (1,000 mg) by mouth once daily. 180 Tablet 3 08/10/2023 Active sertraline (ZOLOFT) 50 mg tabletIndications:D ysthymic disorder Take 1 Tablet (50 mg) by mouth every morning. 90 Tablet 3 08/10/2023 Active clotrimazole 1 % ointIndications:Can didal intertrigo Apply topically to affected area(s). 56.7 g 1 07/04/2024 Active clotrimazole (LOTRIMIN) 1 % creamIndications:Ca ndidal intertrigo Apply topically to affected area(s) two times daily. Under (L) breast 45 g 1 07/04/2024 Active cyanocobalamin (Vitamin B-12) 5,[address] under the tongue once daily. 07/06/2024 Active celecoxib (CELEBREX) 200 mg capsuleIndications: Knee pain, unspecified chronicity, unspecified laterality TAKE ONE CAPSULE BY MOUTH DAILY NEEDED 30 Capsule 12/10/2023 4 Discontinu ed(*Patien t states no longer taking) omeprazole (PRILOSEC) 20 mg Delayed-Release capsuleIndications: Gastroesophageal reflux disease, unspecified whether esophagitis present Take 1 Capsule (20 mg) by mouth once daily before a meal. 90 Capsule 1 03/19/2024 4 Discontinu ed(*Patien t states no longer taking) Active Problems Problem Noted Date Diagnosed Date [...] Encounters Date Type Department Care Team Description 07/06/2024 3:10 PM CDT Preop Visit [facility] [address] [place] [address] Renzo Richardson MD Preoperative Exam (DOS 07/09/24 Dr. Machado, Hernia) 07/06/2024 Travel 07/05/2024 Orders Only [facility] [address] [place] [address] Cheryl Machado MD <No scans attached> 07/04/2024 10:25 AM CDT Office Visit [facility] [address] [place] [address] Nichol Gonzales MD Rash (Under Left breast, zinc oxide is helping for itching, daughter has the same issue, spread to upper abdomen/ ) 07/04/2024 Orders Only [facility] Scanner 1 scan: (1-Ord) [facility], ABDOMEN PELVIS WO, 07/04/2024 07/04/2024 Orders Only [facility] Scanner 1 scan: (1-Ord) [facility], XR CHEST 1V, 07/04/2024 07/04/2024 Orders Only [facility] Scanner 1 scan: (1-Ord) [facility], ABDOMEN PELVIS W CON, 07/04/2024 07/04/2024 Nurse Triage [facility] [address] [place] [address] Renzo Richardson MD Pelvis Pain/problem 07/04/2024 Telephone [facility] [address] [place] [address] Nichol Gonzales MD Medication Management (clotrimazole 1 % oint) 07/04/2024 Travel 06/29/2024 11:05 AM CDT Nurse/Clinic Staff Only [facility] [address] [place] [address] Immunization/Injectio n; Immunization/Injectio n 06/29/2024 Travel from Last 3 Months Immunizations Name Administration Dates Next Due AMB Influenza, IIV3 (Age >=3 years)(Flu Clinic Only) 06/19/2012,08/21/2008 AMB Influenza, IIV4 PF (=>6 mos Flulaval,Fluzone Fluarix)(Flu Clinic Only) 06/13/2015 Amb Influenza, Inact (High-d ose) (Flu Clinic Only) 08/22/2014 COVID-19 VACCINE SPIKEVAX (M ODERNA 50MCG/0.5ML) 12YO+ PFS 06/29/2024,08/10/2023 COVID-19 vaccine (Minekey NTech 30mcg/0.3mL) 12YO+ BIVALENT PF, MDV 09/20/2022 COVID-19 vaccine (Onyvax-Bio NTech 30mcg/0.3mL) PF, MDV 07/08/2021,11/05/2020,10/15/2020 Influenza A (H1N1), Inactivated 09/29/2009 Influenza A (H1N1), Inactiva lowell (Age >=3 Years) 09/29/2009 Influenza Virus, Unspecified 08/10/2023, 07/21/2022,07/08/2021,2019,06/25/2019,07/17/2018,05/13/2017,0 06/11/2016,08/22/2014,06/06/2013, 012,05/24/2011,09/24/2010,09/29/2009,,07/20/2007,06/22/2006,07/19/20 05,06/24/2004 Influenza, High-dose Inactivated 05/13/2017,05/15,08/22/2014 Influenza, IIV3 (Age [...] Cancer Father Pancreatic Heart Disease Father of [place] at 67 Arthritis Mother Other Mother Primary Biliary Cirrhosis at 79 Cancer-breast No Family History Relation Name Status Comments Brother 1 Brother 2 Father Mother Social History Tobacco Use Types Packs/Day Years Used Date Smoking Tobacco: Former Cigarettes 1 40 1 09/12/1957 - 07/13/1998 Smokeless Tobacco: Never Tobacco Cessation:Counseling Given: Yes Alcohol Use Standard Drinks/Week Comments Not Currently 0 (1 standard drink = 0.6 oz pur e alcohol) Mainly beer PHQ-2 Answer Date Recorded PHQ-2 TOTAL SCORE 0 07/06/2024 Social Connections Answer Date Recorded Frequency of Communication with Friends and Fami ly 0 07/06/2024 Financial Resource Strain Answer Date R ecorded Difficulty of Paying Living Expenses 3 07/06/2024 Difficulty of Paying Living Expenses Not on file 07/06/2024 Food Insecurity Answer Date Recorded Do you worry your food will run out before you are able to buy more? 1 07/06/2024 Transportation Needs Answer Date Record ed Lack of Transportation (Medical) 1 07/06/2024 Housing Stability Answer Date Recorded What is your housing situation today? 1 07/06/2024 Sex and Gender Information Value Date Recorded Sex Assigned at Female 07/07/2021 9:35 AM CDT Gender Identity Not on file Sexual Orientation Not on file Obstetrics History Last Filed Vital Signs Vital Sign Reading Time Taken Comments Blood Pressure 133/81 07/06/2024 12:47 PM CDT Pulse 83 07/06/2024 12:47 PM CDT Temperature 36.9 ??C (98.4 ??F) 07/06/2024 12:47 PM C DT Respiratory Rate 18 07/06/2024 12:47 PM CDT Oxygen Saturation 94% 07/06/2024 12:47 PM CDT Inhaled Oxygen Concentration - - Weight 61.9 kg (136 lb 8 oz) 07/06/2024 12:47 PM CDT Height 165.7 cm (5' 5.24) 07/06/2024 12:47 PM C DT Body Mass Index 22.55 07/06/2024 12:47 PM CDT Plan of Treatment Health Maintenance Due Date Last Done Comments Tdap 1951 RSV vaccine for adults or (1 - 1-dose 75+ series) 2013 Zoster (shingles) series for age 50+ (2 of 3) 11/05/2013 09/10/2013 Tetanus booster 04/09/2015 04/09/2005, 04/09/2005 Medicare Wellness for age 65+ 08/10/2024, 12/02/2021, 06/01/2019, Additional history exists BMI (ht and wt on same day) for age 18+ 07/06/2025 07/06/2024, 08/10/2023, 01/01/2022, Additional history exists Depression screening for age 12+ 07/06/2025 07/06/2024, 08/10/2023, 01/28/2023, Additional history exists DEXA/DXA scan for age 65+ Completed 02/11/2009 Pneumococcal series for age 65+ Completed 7, 06/11/2016 COVID-19 vaccine series Completed 06/29/20 24, 08/10/2023, 09/20/2022, Additional history exists Influenza for age 65+ Completed 06/29/2024 , 08/10/2023, 08/10/2023, Additional history exists Procedures Procedure Name Priority Date/Time Associated Diagnosis Comments BASIC METABOLIC PANEL Routine 07/06/2024 1:54 PM CDT Preoperative cardiovascular examination SCAN-CT INTERPRETATION 12:00 AM CDT SCAN-RADIOLOGY REPORT 07/04/2024 12:00 AM CDT SCAN-CT INTERPRETATION 12:00 AM CDT XR DXA BONE DENSITY 2 SITES AXIAL Routine 02/11/2009 9:08 AM CDT Osteopenia from Last 3 Months or Most Recently Relevant to Health Maintenance Results * (ABNORMAL) BASIC METABOLIC PANEL (07/06/2024 1:54 PM CDT) GLUCOSE 141(H) 65 - 99 mg/dL [facility] Comment: ? Fasting reference interval For someone without known diabetes, a glucose value >125 mg/dL indicates that they may have diabetes and this should be confirmed with a follow-up test. UREA NITROGEN (BUN) 11 7 - 25 mg/dL [facility] CREATININE 0.81 0.60 - 0.95 mg/dL [facility] EGFR 71 > OR = 60 mL/min/1. 73m2 [facility] BUN/CREATININE RATIO SEE NOTE: (calc) [facility] Comment: ?? Not Reported: BUN and Creatinine are within ?? reference range. ? SODIUM 143 135 - 146 mmol/L [facility] POTASSIUM 3.8 3.5 - 5.3 mmol/L [facility] CHLORIDE 106 98 - 110 mmol/L [facility] CARBON DIOXIDE 28 20 - 32 mmol/L [facility] ELECTROLYTE BALANCE 9 7 - 17 mmol/L (calc) [facility] CALCIUM 9.2 8.6 - 10.4 mg/dL [facility] Blood BLOOD SPECIMEN / Unknown 07/06/2024 1:54 PM CDT 07/06/2024 1:56 PM CDT Renzo Richardson MD CHEMISTRY [facility] [address] [place] [address], [facility] [address] [place] [address] * SCAN-RADIOLOGY REPORT (07/04/2024 12:00 AM CDT) Anatomical Region Laterality Modality Other Scanner OTHER * SCAN-CT INTERPRETATION (07/04/2024 12:00 AM CDT) Only the most recent of2 resultswithin the time period is included. Anatomical Region Laterality Modality Other Scanner OTHER * XR DEXA BONE DENSITY 2 SITES (02/11/2009 9:08 AM CDT) Anatomical Region Laterality Modality Spine, HIPS, HIPL, HIPR Other 02/11/2009 9:08 AM CDT Narrative 02/14/2009 1:58 PM CDT Please see scanned document for results of this study. Procedure Note Kandy Berger - 02/14/2009 Please see scanned document for results of this study. Renzo Richardson MD DEXA from Last 3 Months or Most Recently Relevant to Health Maintenance Care Teams Loading Unit Tool Setter Relationship Specialty Start Date End Date Renzo Richardson MD [address] [facility] [place] [address] PCP - General 02/17/06
--- NOTE | 2024-07-09 08:47 | W.PM.H&PU ---
History & Physical Update History & Physical Update H&P Reviewed and patient assessed: No changes noted
--- NOTE | 2024-07-09 08:52 | P.GSOP_ITS ---
Operative Note Date of procedure: 07/09/24 Pre-op diagnosis: 1. Incarcerated right inguinal hernia, reduced in the emergency room. Post-op diagnosis: 1. Possible Right femoral hernia. 2. Weak inguinal floor with direct right inguinal hernia. Type of Procedure: 1. Open right inguinal hernia repair with mesh. Indications: 84-year-old female was seen in the emergency room with a right groin mass of several hours duration. Patient underwent abdominal CT scan that showed incarcerated right inguinal hernia containing segment of small bowel. Patient had multiple attempts at reducing that hernia in the emergency room and was finally successful. Patient was discharged home, and open right inguinal hernia room was recommended. The procedure was discussed in detail. The risks associated with the procedure including infection, bleeding, injury to intra- abdominal organs and preperitoneal organs, nerve pain, and hernia recurrence were all discussed with the patient, and she agreed to proceed. Procedure Description: After discussing the risks and benefits of the procedure, the patient signed informed consent.? The operative site was marked and the patient was brought to the operating room and placed on the operating table in supine position.? Care was taken to pad the patient's pressure points.?? The patient was then sedated by anesthesia.?? The operative site was then prepped and draped in the usual sterile fashion.? A time-out was then performed. Surgical site was prepped and draped in sterile fashion. Site of the incision was marked with a marking pen and local anesthetic was injected. An oblique incision was made just above and medial to the right inguinal ligament. Subcutaneous tissue was dissected to external obliques. Superficial subcutaneous vascular branches were clamped, divided and tied with 3-0 Vicryl ties. Small incision was made through the external oblique aponeurosis with scalpel. I then used Metzenbaum scissors to dissect under external obliques and extend my incision. Mosquito clamps were placed on the edges of external oblique exposing the inguinal floor. Moderate amount of scar tissue was noted here. Ilioinguinal nerve was identified and was going through the plain of dissection. The nerve was divided proximally and distally and a 3 cm segment of it was excised. This was not sent to pathology. The right inguinal floor was weak with muscles splaying open. No clear round ligament was identified. The internal ring was examined and no evidence of indirect inguinal hernia was noted. Preperitoneal space was examined under the muscle and thin peritoneum was found overlying the small intestine. No clear indirect hernia sac was noted. Preperitoneal fat overlying the small intestine was then closed with Vicryl suture. I then further dissected right inguinal floor structures near the pubic tubercle. Scar was noted in this area. This dissection was carried down to the pubic bone and medial inguinal ligament. No preperitoneal structures were incarcerated through the femoral defect but edema was noted in this area. The femoral hernia defect was closed by placing interrupted 0-0 Nurolon sutures from the pubic tubercle and along the Castillo's ligament and securing it to the conjoint tendon medially. Adjacent to the femoral vein, a transition stitch was placed and then the repair continued laterally by suturing conjoint tendon to the inguinal ligament. The musculature of the inguinal floor was reapproximated with interrupted 0-0 Nurolon sutures. A Bard mesh onlay was also used for hernia repair and to reinforce the inguinal floor. The mesh onlay was sutured in place with interrupted 0-0 Neurolon sutures to the conjoint tendon medially and shelving edge laterally, pubic tubercle inferiorly. External oblique aponeurosis was closed with a running 3-0 Vicryl. Additional local anesthetic was injected into subcutaneous tissues. Gaurav's fascia and subcutaneous tissue was re-approximated with interrupted Vicryl stitches. Skin incision was closed with 4-0 Monocryl subcuticular stitch. Steri strips and sterile dressing were applied over incision. All counts were correct at the end of the case. Patient tolerated this procedure well and was transferred to PACU in stable condition. Implants: Mesh Anesthesia: MAC and local Surgeon: Cheryl Machado MD Estimated blood loss (mL): 5 Condition: stable Disposition: same day
[2024-07-09 09:04] VITALS: BMI 22.5
[2024-07-09 09:09] VITALS: BP 140/98; PULSE 71; RESP 16; TEMP 37.1; O2SAT 98
[2024-07-09] MEDS: SODIUM CHLORIDE 0.9 % (FLUSH) 10 ML SYRINGE IVF (09:12)
[2024-07-09] MEDS: CEFAZOLIN 1 GM inj IVP (09:25)
[2024-07-09] MEDS: BUPIVACAINE 0.25% 30 ML INJECTION (10:37)
[2024-07-09] MEDS: LIDOCAINE 1%-EPI 1:100,000 20 ML INFILTRATI (10:37)
[2024-07-09 10:54] VITALS: BP 132/65; PULSE 60; RESP 16; O2SAT 98
[2024-07-09 11:00] VITALS: BP 130/68; PULSE 56; RESP 16; O2SAT 97
--- NOTE | 2024-07-09 11:00 | W.ANESCHARGE ---
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
[2024-07-09 11:15] VITALS: BP 140/69; PULSE 61; RESP 16; O2SAT 99
== END 2024-07-09 12:49 | disposition home or self-care (01) ==
PROVIDERS: PCP Family Medicine; Visit Provider Surgery
PROC: (CPT 49505; principal; 2024-07-09 09:15)
DX: K40.90 Unilateral inguinal hernia, without obstruction or gangrene, not specified as recurrent (principal); E11.9 Type 2 diabetes mellitus without complications
CPT/HCPCS: 49505; 00830; 82962; 99100; C1781; J0665; J0690; J2405; J2704; J3010

== ENCOUNTER 2024-11-30 16:30 | Emergency (ER) | payer MEDICARE, OTHER, SELFPAY ==
--- OUTSIDE RECORDS SUMMARY | 2024-11-30 16:32 | XMS_ITS | Clinical Summary ---
Author Organization [facility] Address [address] [place] [id number] Care Team Providers Care Resort Keeper Name Role Phone Renzo Richardson MD Primary Care Provider [phone] Allergies No known active allergies Medications Vit A,C,I-Hrgt-Zgdcca (PRESERVISION AREDS) [phone] [id number] capIndications:Mac ular degeneration Take by mouth. 0 7 Active loperamide (IMODIUM A-D) 2 mg tabletIndications: Loose stools Take 2 mg daily as needed (usually takes 2 mg every other day) 0 8 Active cholecalciferol (VITAMIN D-3) 2,000 unit capsule Take 1 capsule by mouth once daily. 0 1 Active ferrous sulfate 325 mg delayed release tabletIndications: Anemia of unknown etiology Take 1 Tablet (325 mg) by mouth once daily with a meal. 90 Tablet 3 3 Active cyanocobalamin (Vitamin B-12) 5,[address] under the tongue once daily. 4 Active levothyroxine (SYNTHROID) 50 mcg tabletIndications: Hypothyroidism, unspecified type Take 1 Tablet (50 mcg) by mouth before breakfast. 90 Tablet 3 5 Active atorvastatin (LIPITOR) 20 mg tabletIndications: Other hyperlipidemia Take 1 Tablet (20 mg) by mouth once daily. 90 Tablet 3 5 Active sertraline (ZOLOFT) 100 mg tabletIndications: Anxiety Take 1 Tablet (100 mg) by mouth once daily in the morning. 90 Tablet 3 5 Active metFORMIN (GLUCOPHAGE XR) 500 mg Extended-Release tabletIndications: Diabetes mellitus without complication (HC) Take 1 Tablet (500 mg) by mouth two times daily with meals. Wait until they call for this. 180 Tablet 3 5 Active metFORMIN (GLUCOPHAGE XR) 500 mg Extended-Release tabletIndications: Diabetes mellitus without complication (HC) Take 3 Tablets (1,500 mg) by mouth once daily with evening meal. 270 Tablet 3 5 11/02/19 25 Discontin ued(*Medi cation adjustmen t) Active Problems Problem Noted Date Diagnosed Date [...] Encounters Date Type Department Care Team Description 11/30/2024 Nurse Triage [facility] [address] [place] [address] Renzo Richardson MD Abdominal Pain 11/29/2024 11:00 AM CDT Ancillary Procedure [facility] [address] [place] [address] Arrived 11/29/2024 Travel 11/02/2024 Telephone [facility] [address] [place] [address] Renzo Richardson MD Diabetes 10/17/2024 Telephone [facility] [address] [place] [address] Renzo Richardson MD Diabetes 10/01/2024 12:30 PM RELATIONSHIP ADVISOR Office Visit [facility] [address] [place] [address] Cheryl Machado MD Follow Up (Open right inguinal hernia repair with mesh 07/09/24) 10/01/2024 Travel 09/19/2024 10:05 AM RELATIONSHIP ADVISOR Office Visit [facility] [address] [place] [address] Renzo Richardson MD Diabetes (Follow up elevated blood sugars) 09/18/2024 Travel 09/14/2024 Telephone [facility] [address] [place] [address] Renzo Richardson MD Questions (labs before appt) 09/07/2024 3:45 PM RELATIONSHIP ADVISOR Phone Office Visit [facility] [address] [place] [address] Maki Singh PA Diabetes 09/07/2024 Travel from Last 3 Months Immunizations Immunization Administration Dates Next Due AMB Influenza, IIV3 (Age >=3 years)(Flu Clinic Only) 06/19/2012,08/21/2008 AMB Influenza, IIV4 PF (=>6 mos Flulaval,Fluzone Fluarix)(Flu Clinic Only) 06/13/2015 Amb Influenza, Inact (High-d ose) (Flu Clinic Only) 08/22/2014 COVID-19 VACCINE SPIKEVAX (M ODERNA 50MCG/0.5ML) 12YO+ PFS 06/29/2024,08/10/2023 COVID-19 vaccine (KidBook-Bio NTech 30mcg/0.3mL) 12YO+ BIVALENT PF, MDV 09/20/2022 COVID-19 vaccine (NanoVibronix NTSpace Monkey 30mcg/0.3mL) PF, MDV 07/08/2021,11/05/2020,10/15/2020 Influenza A (H1N1), [...] Cancer Father Pancreatic Heart Disease Father of [place] at 67 Arthritis Mother Other Mother Primary [...] 0 07/06/2024 Social Connections Answer Date Recorded Do you often feel lonely or isolated from those around you? 0 07/06/2024 Financial Resource Strain Answer Date R ecorded Difficulty of Paying Living Expenses 3 07/06/2024 Difficulty of Paying Living Expenses Not on file 07/06/2024 Food Insecurity Answer Date Recorded Do you worry your food will run out before you are able to buy more? 1 07/06/2024 Transportation Needs Answer Date Record ed Does lack of transportation keep you from medica l appointments? 1 07/06/2024 Does lack of transportation keep you from work, meetings or getting things that you need? 1 07/06/2024 Housing Stability Answer Date Recorded What is your housing situation today? 1 07/06/2024 Utilities Answer Date Recorded Do you have trouble paying f or utilities (for example, heat, electricity, water, phone)? 1 07/06/2024 Comments No Sex and Gender Information Value Date Recorded Sex Assigned at Female 07/07/2021 9:35 AM CDT Legal Sex Female 5:24 AM RELATIONSHIP ADVISOR Gender Identity Not on file Sexual Orientation Not on file Occupation Industry Job Start Date Job End Date Retired Not on file Not on file Not on file Obstetrics History Last Filed Vital Signs Vital Sign Reading Time Taken Comments Blood Pressure 127/73 10/01/2024 12:27 PM RELATIONSHIP ADVISOR Pulse 77 10/01/2024 12:27 PM RELATIONSHIP ADVISOR Temperature 36.9 C (98.4 F) 07/06/2024 12:47 PM CDT Respiratory Rate 18 07/06/2024 12:4 7 PM CDT Oxygen Saturation 99% 10/01/2024 12: 27 PM RELATIONSHIP ADVISOR Inhaled Oxygen Concentration - - Weight 58.6 kg (129 lb 3.2 oz) 10/01/19 12:27 PM RELATIONSHIP ADVISOR with boots Height 165.7 cm (5' 5.24) 07/06/2024 1 2:47 PM CDT Body Mass Index 21.34 07/06/2024 12:47 PM CDT Plan of Treatment Upcoming Encounters Date Type Department Care Team (Late st Contact Info) Description 12/17/2024 11:15 AM CDT Orders Only [facility] [address] [place] [address] [facility] 12/25/2024 10:00 AM CDT Office Visit [facility] [address] [place] [address] Renzo Richardson MD [address] [place] [address] Health Maintenance Due Date Last Done Comments Tdap 1951 RSV vaccine for adults or (1 - 1-dose 75+ series) 2013 Zoster (shingles) series for age 50+ (2 of 3) 11/05/2013 09/10/2013 Tetanus booster 04/09/2015 04/09/2005, 04/09/2005 Medicare Wellness for age 65+ 08/10/2024, 12/02/2021, 06/01/2019, Additional history exists COVID-19 vaccine series ( season) 2024 06/29/2024, 08/10/2023, 09/20/2022, Additional history exists BMI (ht and wt on same day) for age 18+ 07/06/2025 07/06/2024, 08/10/2023, 01/01/2022, Additional history exists Depression screening for age 12+ 07/09/2025 07/09/2024, 07/06/2024, 08/10/2023, Additional history exists DEXA/DXA scan for age 65+ Completed 02/11/2009 Pneumococcal series for age 50+ Completed 7, 06/11/2016 Influenza Vaccine Completed 06/29/2024, , 08/10/2023, Additional history exists Procedures Procedure Name Priority Date/Time Associated Diagnosis Comments XR MAMMO DOM BILAT SCREEN Routine 11/29/2024 11:13 AM CDT Routine adult health maintenance TSH WITH REFLEX Routine 09/19/2024 11:13 AM RELATIONSHIP ADVISOR Hypothyroidism, unspecified type HEMOGLOBIN Routine 09/19/2024 11:13 AM RELATIONSHIP ADVISOR Anemia of unknown etiology LIPID PANEL W REFLEX MEASURED LDL Routine 09/19/2024 11:13 AM RELATIONSHIP ADVISOR DIABETES TYPE II WITHOUT COMPLICATIONS OR UNSPECIFIED BASIC METABOLIC PANEL Routine 09/19/2024 11:12 AM RELATIONSHIP ADVISOR DIABETES TYPE II WITHOUT COMPLICATIONS OR UNSPECIFIED URINE ALBUMIN TO CREATININE RATIO, RANDOM Routine 09/19/2024 11:09 AM RELATIONSHIP ADVISOR DIABETES TYPE II WITHOUT COMPLICATIONS OR UNSPECIFIED XR DXA BONE DENSITY 2 SITES AXIAL Routine 02/11/2009 9:08 AM CDT Osteopenia from Last 3 Months or Most Recently Relevant to Health Maintenance Results * XR MAMMO DOM BILAT SCREEN (11/29/2024 11:13 AM CDT) Anatomical Region Laterality Modality BREASTS, Breast Left, Breast Right Bilateral Mammography Impressions 11/29/2024 2:26 PM CDT There is no radiographic evidence for malignancy. Recommend annual mammograms. MAMMOGRAM ASSESSMENT: ACR 1 Negative PATIENTS: You will also receive a letter with your examination results in an easy to read format. If you have questions about your results, please contact your referring provider. Narrative 11/29/2024 2:26 PM CDT For Patients: As a result of the Century Cures Act, medical imaging exams and procedure reports are released immediately into your electronic medical record. You may view this report before your referring provider. If you have questions, please contact your health care provider. XR MAMMO DOM BILAT SCREEN [[id number]] CLINICAL HISTORY: This is an asymptomatic 84 y.o. patient. INDICATION FOR EXAM: Mammogram Screening. TECHNIQUE: CC and MLO views were obtained. This study was evaluated with the assistance of Computer-Aided Detection. Breast Tomosynthesis was used in interpretation. COMPARISON FILM: Yes 11/29/23 [facility] 10/11/22 [facility] FINDINGS: There are scattered areas of fibroglandular density. There are no dominant masses, suspicious micro calcifications or areas of architectural distortion. Renzo Richardson MD MAMMO Final Resu lt * TSH WITH REFLEX (09/19/2024 11:13 AM RELATIONSHIP ADVISOR) TSH W/REFLEX TO FT4 1.54 0.40 - 4.50 mIU/L [facility] Blood BLOOD SPECIMEN / Unknown 09/19/2024 11:13 AM RELATIONSHIP ADVISOR 09/19/2024 11:14 AM RELATIONSHIP ADVISOR Renzo Richardson MD CHEMISTRY Final Resu lt [facility] [address] [place] [address], [facility] [address] [place] [address] * LIPID PANEL W REFLEX MEASURED LDL (09/19/2024 11:13 AM RELATIONSHIP ADVISOR) CHOLESTEROL, TOTAL 133 <200 mg/dL [facility] HDL CHOLESTEROL 65 > OR = 50 mg/dL [facility] TRIGLYCERIDES 69 <150 mg/dL [facility] LDL-CHOLESTEROL 53 mg/dL (calc) [facility] Comment: Reference range: <100 Desirable range <100 mg/dL for primary prevention; <70 mg/dL for patients with CHD or diabetic patients with > or = 2 CHD risk factors. LDL-C is now calculated using the Yordan-Cabrera calculation, which is a validated novel method providing better accuracy than the Friedewald equation in the estimation of LDL-C. Yordan SS et al. GURVINDER. 2013;310(19): 4681-7102 (http://education.[employer]/faq/TBC756) CHOL/HDLC RATIO 2.0 <5.0 (calc) [facility] NON HDL CHOLESTEROL 68 <130 mg/dL (calc) [facility] Comment: For patients with diabetes plus 1 major ASCVD risk factor, treating to a non-HDL-C goal of <100 mg/dL (LDL-C of <70 mg/dL) is considered a therapeutic option. Blood BLOOD SPECIMEN / Unknown 09/19/2024 11:13 AM RELATIONSHIP ADVISOR 09/19/2024 11:14 AM RELATIONSHIP ADVISOR Renzo Richardson MD CHEMISTRY Final Resu lt Performing Organization Address [facility]/ZIP Co de Phone Number [facility] [address] [place] [address], [facility] [address] [facility] [place] [address] * HEMOGLOBIN (09/19/2024 11:13 AM RELATIONSHIP ADVISOR) HEMOGLOBIN 12.9 11.7 - 15.5 g/dL [facility] Blood BLOOD SPECIMEN / Unknown 09/19/2024 11:13 AM RELATIONSHIP ADVISOR 09/19/2024 11:14 AM RELATIONSHIP ADVISOR Renzo Richardson MD HEMATOLOGY Final Resu lt [facility] [address] [place] [address], [facility] [address] [facility] [place] [address] * (ABNORMAL) BASIC METABOLIC PANEL (09/19/2024 11:12 AM RELATIONSHIP ADVISOR) GLUCOSE 143(H) 65 - 99 mg/dL [facility] Comment: Fasting reference interval For someone without known diabetes, a glucose value >125 mg/dL indicates that they may have diabetes and this should be confirmed with a follow-up test. UREA NITROGEN (BUN) 14 7 - 25 mg/dL [facility] CREATININE 0.71 0.60 - 0.95 mg/dL [facility] EGFR 83 > OR = 60 mL/min/1. 73m2 [facility] BUN/CREATININE RATIO SEE NOTE: 6 - 22 (calc) [facility] Comment: Not Reported: BUN and Creatinine are within reference range. SODIUM 143 135 - 146 mmol/L [facility] POTASSIUM 4.0 3.5 - 5.3 mmol/L [facility] CHLORIDE 107 98 - 110 mmol/L [facility] CARBON DIOXIDE 27 20 - 32 mmol/L [facility] ELECTROLYTE BALANCE 9 7 - 17 mmol/L (calc) [facility] CALCIUM 9.6 8.6 - 10.4 mg/dL [facility] Blood BLOOD SPECIMEN / Unknown 09/19/2024 11:12 AM RELATIONSHIP ADVISOR 09/19/2024 11:13 AM RELATIONSHIP ADVISOR Renzo Richardson MD CHEMISTRY Final Resu lt [facility] [address] [place] [address], [facility] [address] [place] [address] * URINE ALBUMIN TO CREATININE RATIO, RANDOM (09/19/2024 11:09 AM RELATIONSHIP ADVISOR) ALB RAND URINE 16.9 mg/L 09/19/2024 4:08 PM RELATIONSHIP ADVISOR [facility] CREATININE,URIN E 1.89 g/L 09/19/2024 4:08 PM RELATIONSHIP ADVISOR [facility] ALBUMIN TO CREATININE RATIO,RAND UR 8.9 <30.0 mg/g creat 09/19/2024 4:08 PM RELATIONSHIP ADVISOR [facility] Urine URINE SPECIMEN / Unknown Non-Blood / Unknown 09/19/2024 11:09 AM RELATIONSHIP ADVISOR 09/19/2024 11:10 AM RELATIONSHIP ADVISOR Narrative [facility] - 09/19/2024 4:08 PM RELATIONSHIP ADVISOR If Albumin to Creatinine Ratio is elevated, consider the following: Elevations seen with incipient nephropathy associated with diabetes mellitus or hypertension. Stress, exercise,hematuria, and urinary tract infection may also produce elevated results. If clinically indicated, confirm with 24 Hour Albumin to Creatinine Ratio. Renzo Richardson MD URINE Final Resu lt [facility] [address] [place] [address], [place] * XR DEXA BONE DENSITY 2 SITES (02/11/2009 9:08 AM CDT) Anatomical Region Laterality Modality Spine, HIPS, HIPL, HIPR Other 02/11/2009 9:08 AM CDT Narrative 02/14/2009 1:58 PM CDT Please see scanned document for results of this study. Procedure Note Kandy Berger - 02/14/2009 Please see scanned document for results of this study. Renzo Richardson MD DEXA Final Resu lt from Last 3 Months or Most Recently Relevant to Health Maintenance Insurance [employer] [place] ONLY [place] [id number] Care Teams Resort Keeper Relationship Specialty Start Date End Date Renzo Richardson MD [address] [place] [address] PCP - General 02/17/06
[2024-11-30 16:33] VITALS: BP 162/75; PULSE 83; RESP 18; TEMP 37.3; O2SAT 96; BMI 20.2
--- NOTE | 2024-11-30 16:53 | CRLHL7_ITS ---
For Patients: As a result of the Century Cures Act, medical imaging exams and procedure reports are released immediately into your electronic medical record. You may view this report before your referring provider. If you have questions, please contact your health care provider. INDICATION: Abdominal pain. TECHNIQUE: CT of the abdomen and pelvis acquired with 62 cc Isovue 370 IV contrast. Coronal and sagittal reconstructions. COMPARISON: CT of the abdomen and pelvis 07/04/2024. FINDINGS: Lower chest: Minimal right basilar atelectasis. Few small noncalcified pulmonary nodules in the right middle lobe. Liver: Mild diffuse hepatic steatosis. Multiple hepatic cysts. Gallbladder and bile ducts: Cholecystectomy. Stable mild intra and extrahepatic bile duct dilation likely related to post cholecystectomy state. Spleen: Unremarkable. Pancreas: Unremarkable. Adrenal glands: The right adrenal gland is negative. Stable left adrenal nodules. Kidneys, Ureters, and Bladder: Symmetric enhancement. Bilateral parapelvic renal cysts. No hydronephrosis or ureteral dilation. No obstructing urinary calculi identified. No bladder wall thickening. Reproductive organs: Calcified uterine fibroids. GI tract/Peritoneum: There is a short segment of small bowel incarcerated within a right inguinal hernia as well as a small amount of fluid (series 4 image 44). Multiple upstream dilated fluid-filled small bowel loops with associated mesenteric edema. Findings are compatible with obstruction. Few thick-walled small bowel loops in the left upper quadrant. Distal ileal loops are decompressed. Mild stool burden. Colonic diverticulosis without evidence of diverticulitis. The appendix is not identified. No intraperitoneal free air or definite pneumatosis. Small amount of free fluid in the pelvis. Small volume perihepatic ascites. Vasculature: Aortoiliac vascular calcifications. Stable infrarenal abdominal aortic aneurysm measuring 2.9 cm in AP dimension (series 2, image 65). Mesenteric arteries appear patent. Lymph nodes: No lymphadenopathy. Abdominal Wall: Unremarkable. Bones: Right convex lumbar curve. Degenerative changes of the spine and hips. Chronic L5 superior endplate compression fracture. IMPRESSION: Small bowel obstruction secondary to an incarcerated loop of small bowel within a right inguinal hernia. Associated mesenteric edema and small volume free fluid. Surgical consult is recommended. Please note that all CT scans at this facility use dose modulation, iterative reconstruction, and/or weight-based dosing when appropriate to reduce radiation dose to as low as reasonably achievable. Dictated by Caity Howell MD @ 11/30/2024 6:42:44 PM (Electronically Signed)
[2024-11-30 17:06] LABS: Lactate* 0.8 mmol/L (0.5-1.9)
[2024-11-30 17:08] LABS: Basophils Absolute Auto 0.01 K/uL (0.00-0.30); Basophils Percent Auto 0.1 % (0.0-3.0); Hematocrit 42.7 % (33.0-51.0); Hemoglobin* 13.9 gm/dL (12.0-16.0); Immature Granulocytes Abs Auto 0.01 K/uL (0.00-0.30); Immature Granulocytes Pct Auto 0.1 %; Lymphocytes Percent Auto 6.7 % (20-44); Mean Corpuscular HGB Conc 33 gm/dL (32-36); Mean Corpuscular Hemoglobin 31 pg (26-34); Mean Corpuscular Volume 94 fL (80-100); Monocytes Percent Auto 4.8 % (0.0-11.0); Neutrophils Percent Auto 88.3 % (42.0-72.0); Platelet Count* 229 K/uL (140-440); RDW Coefficient of Variation % 13.3 % (11.5-15.5); Red Blood Count 4.55 m/uL (4.00-5.20); White Blood Count* 9.39 K/uL (4.50-11.00)
[2024-11-30 17:10] LABS: Slide Review Reflex No
--- OUTSIDE RECORDS SUMMARY | 2024-11-30 17:20 | XMS_ITS | Clinical Summary ---
Author Organization [employer] [facility] Address [address] [place] [address] Care Team Providers Care Willow Machine Tender Name Role Phone Renzo Richardson MD Primary Care Provider [phone] Allergies No known active allergies Medications Vit A,C,G-Jbwe-Vlfmlk (PRESERVISION AREDS) [phone] qxuj-ci-etwy capIndications:Mac ular degeneration Take by mouth. 0 [...] Department Care Team Description 11/30/2024 Nurse Triage [facility] [address] [facility] [place] [address] Renzo Richardson MD Abdominal Pain 11/29/2024 11:00 AM CDT Ancillary Procedure [facility] [address] [facility] [address] Arrived 11/29/2024 Travel 11/02/2024 Telephone [facility] [address] [facility] [place] [address] Renzo Richardson MD Diabetes 10/17/2024 Telephone [facility] [address] [facility] [address] Renzo Richardson MD Diabetes 10/01/2024 12:30 PM [employer] Office Visit [facility] [address] [place] [address] Cheryl Machado MD Follow Up (Open right inguinal hernia repair with mesh 07/09/24) 10/01/2024 Travel 09/19/2024 10:05 AM [employer] Office Visit [facility] [address] [place] [address] Renzo Richardson MD Diabetes (Follow up elevated blood sugars) 09/18/2024 Travel 09/14/2024 Telephone [facility] [address] [place] [address] Renzo Richardson MD Questions (labs before appt) 09/07/2024 3:45 PM [employer] Phone Office Visit [facility] [address] [place] [address] Maki Singh PA Diabetes 09/07/2024 Travel from Last 3 Months Immunizations Immunization Administration Dates Next Due AMB Influenza, IIV3 (Age >=3 years)(Flu Clinic Only) 06/19/2012,08/21/2008 AMB Influenza, IIV4 PF (=>6 mos Flulaval,Fluzone Fluarix)(Flu Clinic Only) 06/13/2015 Amb Influenza, Inact (High-d ose) (Flu Clinic Only) 08/22/2014 COVID-19 VACCINE SPIKEVAX (M ODERNA 50MCG/0.5ML) 12YO+ PFS 06/29/2024,08/10/2023 COVID-19 vaccine ([employer]-Bio NTech 30mcg/0.3mL) 12YO+ BIVALENT PF, MDV 09/20/2022 COVID-19 vaccine ([employer] NTPelliano 30mcg/0.3mL) PF, MDV 07/08/2021,11/05/2020,10/15/2020 Influenza A (H1N1), [...] Cancer Father Pancreatic Heart Disease Father of [place] at 67 Arthritis Mother Other Mother Primary [...] AM CDT Legal Sex Female 5:24 AM [employer] Gender Identity Not on file Sexual Orientation Not on file Occupation Industry Job Start Date Job End Date Retired Not on file Not on file Not on file Obstetrics History Last Filed Vital Signs Vital Sign Reading Time Taken Comments Blood Pressure 127/73 10/01/2024 12:27 PM [employer] Pulse 77 10/01/2024 12:27 PM [employer] Temperature 36.9 C (98.4 F) 07/06/2024 12:47 PM CDT Respiratory Rate 18 07/06/2024 12:4 7 PM CDT Oxygen Saturation 99% 10/01/2024 12: 27 PM [employer] Inhaled Oxygen Concentration - - Weight 58.6 kg (129 lb 3.2 oz) 10/01/19 12:27 PM [employer] TE[employer]ER with boots Height 165.7 cm (5' 5.24) 07/06/2024 1 2:47 PM CDT Body Mass Index 21.34 07/06/2024 12:47 PM CDT Plan of Treatment Upcoming Encounters Date Type Department Care Team (Late st Contact Info) Description 12/17/2024 11:15 AM CDT Orders Only [facility] [address] [place] [address] [facility] 12/25/2024 10:00 AM CDT Office Visit [facility] [address] [facility] [place] [address] Renzo Richardson MD [address] [place] [address] Health Maintenance Due Date Last Done Comments [...] TSH WITH REFLEX Routine 09/19/2024 11:13 AM [employer] Hypothyroidism, unspecified type HEMOGLOBIN Routine 09/19/2024 11:13 AM [employer] Anemia of unknown etiology LIPID PANEL W REFLEX MEASURED LDL Routine 09/19/2024 11:13 AM [employer] DIABETES TYPE II WITHOUT COMPLICATIONS OR UNSPECIFIED BASIC METABOLIC PANEL Routine 09/19/2024 11:12 AM [employer] TE[employer]ER DIABETES TYPE II WITHOUT COMPLICATIONS OR UNSPECIFIED URINE ALBUMIN TO CREATININE RATIO, RANDOM Routine 09/19/2024 11:09 AM [employer] TE[employer]ER DIABETES TYPE II WITHOUT COMPLICATIONS OR UNSPECIFIED [...] care provider. XR MAMMO DOM BILAT SCREEN [[id number]] CLINICAL HISTORY: This is an asymptomatic 84 [...] * TSH WITH REFLEX (09/19/2024 11:13 AM [employer]) TSH W/REFLEX TO FT4 1.54 0.40 - 4.50 mIU/L [facility] Blood BLOOD SPECIMEN / Unknown 09/19/2024 11:13 AM [employer] 09/19/2024 11:14 AM [employer] TE[employer]ER Renzo Richardson MD CHEMISTRY Final Resu lt [facility] [address] [place] [address], [facility] [address] [place] [address] * LIPID PANEL W REFLEX MEASURED LDL (09/19/2024 11:13 AM [employer] TE[employer]ER) CHOLESTEROL, TOTAL 133 <200 mg/dL [facility] [...] LDL-C. Yordan SS et al. GURVINDER. 2013;310(19): 3649-1048 (http://education.Pikum/faq/IEK290) CHOL/HDLC RATIO 2.0 <5.0 (calc) [facility] NON HDL CHOLESTEROL 68 <130 mg/dL (calc) [facility] Comment: For patients with diabetes plus 1 major ASCVD risk factor, treating to a non-HDL-C goal of <100 mg/dL (LDL-C of <70 mg/dL) is considered a therapeutic option. Blood BLOOD SPECIMEN / Unknown 09/19/2024 11:13 AM [employer] READ[employer] TEACHER 09/19/2024 11:14 AM [employer] TE[employer]ER Renzo Richardson MD CHEMISTRY Final Resu lt Performing Organization Address [facility]/ZIP Co de Phone Number [place] [facility] [address] [place] [address], [facility] [address] [facility] [place] [address] * HEMOGLOBIN (09/19/2024 11:13 AM [employer]ING TEACHER) HEMOGLOBIN 12.9 11.7 - 15.5 g/dL [facility] Blood BLOOD SPECIMEN / Unknown 09/19/2024 11:13 AM [employer] TE[employer]ER 09/19/2024 11:14 AM [employer] TE[employer]ER Renzo Richardson MD HEMATOLOGY Final Resu lt [place] [facility] [address] [place] [address], [facility] [address] [facility] [place] [address] * (ABNORMAL) BASIC METABOLIC PANEL (09/19/2024 11:12 AM [employer] TEACHER) GLUCOSE 143(H) 65 - 99 mg/dL [facility] Comment: Fasting reference interval For someone without known diabetes, a glucose value >125 mg/dL indicates that they may have diabetes and this should be confirmed with a follow-up test. UREA NITROGEN (BUN) 14 7 - 25 mg/dL [facility] CREATININE 0.71 0.60 - 0.95 mg/dL [facility] EGFR 83 > OR = 60 mL/min/1. 73m2 [facility] BUN/CREATININE RATIO SEE NOTE: 6 - 22 (calc) [facility] Comment: Not Reported: BUN and Creatinine are within reference range. SODIUM 143 135 - 146 mmol/L [facility] POTASSIUM 4.0 3.5 - 5.3 mmol/L [facility] CHLORIDE 107 98 - 110 mmol/L [facility] CARBON DIOXIDE 27 20 - 32 mmol/L [facility] ELECTROLYTE BALANCE 9 7 - 17 mmol/L (calc) [facility] CALCIUM 9.6 8.6 - 10.4 mg/dL [facility] Blood BLOOD SPECIMEN / Unknown 09/19/2024 11:12 AM [employer] TE[employer]ER 09/19/2024 11:13 AM [employer] TE[employer]ER Renzo Richardson MD CHEMISTRY Final Resu lt [place] [facility] [address] [place] [address], [facility] [address] [place] [address] * URINE ALBUMIN TO CREATININE RATIO, RANDOM (09/19/2024 11:09 AM [employer] TE[employer]ER) ALB RAND URINE 16.9 mg/L 09/19/2024 4:08 PM [employer] TEACHER [facility] CREATININE,URIN E 1.89 g/L 09/19/2024 4:08 PM [employer] TEACHER [facility] ALBUMIN TO CREATININE RATIO,RAND UR 8.9 <30.0 mg/g creat 09/19/2024 4:08 PM [employer] TEACHER [facility] Urine URINE SPECIMEN / Unknown Non-Blood / Unknown 09/19/2024 11:09 AM [employer] READING TEACHER 09/19/2024 11:10 AM [employer] READING TEACHER Narrative [facility] - 09/19/2024 4:08 PM [employer] READ[employer] TEACHER If Albumin to Creatinine Ratio is elevated, consider the following: Elevations seen with incipient nephropathy associated with diabetes mellitus or hypertension. Stress, exercise,hematuria, and urinary tract infection may also produce elevated results. If clinically indicated, confirm with 24 Hour Albumin to Creatinine Ratio. Renzo Richardson MD URINE Final Resu lt [facility] [address] [place] [address], [place] * XR DEXA BONE DENSITY 2 [...] Most Recently Relevant to Health Maintenance Insurance [employer] MR PB ONLY [place] [id number] Care Teams Willow Machine Tender Relationship Specialty Start Date End Date Renzo Richardson MD [address] [place] [address] PCP - General 02/17/06
[2024-11-30 17:23] LABS: Albumin* 4.3 g/dL (3.3-5.0); Chloride* 101 mmol/L (96-114); Sodium* 135 mmol/L (135-149)
[2024-11-30 17:25] LABS: Blood Urea Nitrogen* 15 mg/dL (7-30); Creatinine* 0.7 mg/dL (0.5-1.5); Est. Creatinine Clearance* 36.15; Estimated Glomerular Filt Rate 84 ml/min
[2024-11-30 17:26] LABS: Alanine Aminotransferase* 20 U/L (4-35); Alkaline Phosphatase* 85 U/L (40-150); Anion Gap 7 mEq/L (7-15); Aspartate Amino Transferase* 30 U/L (12-35); Bilirubin Direct* 0.3 mg/dL (0.0-0.5); Calcium* 9.4 mg/dL (8.4-10.6); Carbon Dioxide* 27 mmol/L (20-32); Glucose* 174 mg/dL (60-115); Lipase* 70 U/L (23-300); Total Protein* 6.5 g/dL (6.0-8.3)
--- NOTE | 2024-11-30 17:28 | ED_ITS ---
HPI - General Adult General Chief complaint: Abdominal Pain Stated complaint: Abdominal Pain Time Seen by Provider: 11/30/24 16:31 Source: patient Mode of arrival: ambulatory Limitations: no limitations History of Present Illness HPI narrative: 84-year-old female coming in today complaining of diffuse abdominal pain that comes and goes. It started last night. She made herself vomit and thought that made it feel better but then around 2:00 p.m. today which is about 3 hours ago the pain did come back. Pain is diffuse located mostly on the upper abdomen. Nothing seems to make it better or worse. She has had decreased appetite today. No fevers or chills. No diarrhea or constipation. Last bowel movement was this morning that was normal. No dysuria increased urinary frequency or urgency. No blood in her stool or urine. When the pain comes it is quite strong and sharp. She feels like she is passing less gas than usual she does feel like she has to burp more than usual. Past surgical history significant for appendectomy and cholecystectomy as well as an incarcerated inguinal hernia repair. Patient does have a history of diabetes, hypothyroidism. Related Data Home Medications ?Medication ?Instructions ?Recorded ?Confirmed atorvastatin 20 mg tablet 20 mg PO DAILY 04/09/24 11/30/24 bupropion HCl 150 mg 24 hr tablet, 150 mg PO DAILY 04/09/24 07/09/24 extended release cholecalciferol (vitamin D3) 625 625 mcg PO QWEEK 04/09/24 11/30/24 mcg (25,000 unit) capsule levothyroxine 50 mcg tablet 50 mcg PO DAILY 04/09/24 11/30/24 metformin 500 mg tablet,extended 500 mg PO BID 04/09/24 11/30/24 release 24 hr sertraline 50 mg tablet 50 mg PO DAILY 04/09/24 11/30/24 vit C 250 mg-vit E 90 mg-zinc 40 1 tab PO BID 04/09/24 07/09/24 mg-copper 1 [id number] capsule (PreserVision AREDS-2) ferrous sulfate 325 mg (65 mg 325 mg PO DAILY 07/09/24 11/30/24 iron) tablet (iron) Previous Rx's ?Medication ?Instructions ?Recorded hydrocodone 5 mg-acetaminophen 325 1 tab PO Q6H PRN pain #15 tabs 07/09/24 mg tablet Allergies Allergy/AdvReac Type Severity Reaction Status Date / Time No Known Drug Allergies Allergy Verified 11/30/24 17:47 Review of Systems Status of ROS: Reports: 10 or more systems reviewed and unremarkable except as noted in History and below [facility] Surgical History History of umbilical hernia repair ?Z98.890 - Other specified postprocedural states (ICD-10) ?Z87.19 - Personal history of other diseases of the digestive system (ICD-10) History of appendectomy ?Z90.49 - Acquired absence of other specified parts of digestive tract (ICD- 10) History of cholecystectomy ?Z90.49 - Acquired absence of other specified parts of digestive tract (ICD- 10) Social History Smoking Status: Former smoker How often do you have a drink containing alcohol: 4 or more times a week How many standard drinks containing alcohol do you have on a typical day: 1 or 2 AUDIT-C Alcohol total score: 4 Non-prescribed substance use: denies use Caffeine: No Are you using contraception or practicing any form of control: No Exam Narrative: Exam Narrative: Well-nourished well-developed patient in no acute distress. Alert and oriented. Answers questions appropriately. Mood and affect are appropriate. Thoughts are goal oriented and rational. No tangential or magical thinking noted. Patient speaks in full sentences without needing to catch her breath. HEENT: Normocephalic atraumatic. Extraocular muscles are intact. Conjunctivae are moist without any icterus noted. Moist mucous membranes. Neck is soft. Cardiovascular: Heart is regular rate and rhythm S1 and S2 are present without any murmurs. Lungs: Clear to auscultation bilaterally no wheezes rhonchi or rales are appreciated. Patient takes deep breaths without any discomfort. Abdomen: Soft and nondistended with normal bowel sounds. Patient has epigastric pain, right lower quadrant pain and periumbilical discomfort. She has no pain at the site of her inguinal hernia repair site. She does have a bulge there. Extremities: Bilateral lower extremities are without edema. Skin: Well perfused without any obvious rashes. Const: Vital Signs, click to edit/add: Vital Signs - 24 hr 11/30/24 16:33 11/30/24 18:19 Temperature 99.1 F 99.4 F Pulse Rate [Right Pulse Oximeter] 83 78 Respiratory Rate 18 18 Blood Pressure [Ri ght Upper Arm] 162/75 H 144/76 H Pulse Oximetry 96 95 Oxygen Delivery Me thod Room Air Room Air Course Course ED Course: Differential diagnoses includes pancreatitis, peptic ulcer disease, gastritis. Given the location and temporal characteristics of the pain this is less likely an aortic dissection or an ischemic bowel. Lab work is unremarkable. CT shows small segment small bowel incarcerated in a right inguinal hernia with signs suggesting obstruction. Attempts to reduce the hernia were unsuccessful. Spoke to Dr. Strickland who recommended we transfer the patient. Spoke to Dr. Levine at [facility] who will be accepting the patient for transfer. Vital Signs Vital signs: Initial Vital Signs Temperature 99.1 F 11/30/24 16:33 Temperature Source Temporal Artery Scan 11/30/24 16:33 Pulse Rate 83 11/30/24 16:33 Pulse Rhythm Regular 11/30/24 16:33 Respiratory Rate 18 11/30/24 16:33 Blood Pressure 162/75 H 11/30/24 16:33 Blood Pressure Mean 104 11/30/24 16:33 Blood Pressure Position Sitting 11/30/24 16:33 Pulse Oximetry 96 11/30/24 16:33 Oxygen Delivery Method Room Air 11/30/24 16:33 Vital Signs Temperature 99.1 F 11/30/24 16:33 Pulse Rate 83 11/30/24 16:33 Respiratory Rate 18 11/30/24 16:33 Blood Pressure 162/75 H 11/30/24 16:33 Pulse Oximetry 96 11/30/24 16:33 Oxygen Delivery Method Room Air 11/30/24 16:33 Temperature 99.4 F 11/30/24 18:19 Pulse Rate 78 11/30/24 18:19 Respiratory Rate 18 11/30/24 18:19 Blood Pressure 144/76 H 11/30/24 18:19 Pulse Oximetry 95 11/30/24 18:19 Oxygen Delivery Method Room Air 11/30/24 18:19 Medical Decision Making MDM Narrative Medical decision making narrative: Incarcerated bowel. Plan per above. Lab Data Lab results reviewed: Yes I reviewed the patient's lab results Labs: Lab Results 11/30/24 11/30/24 Range/Units 17:00 18:47 WBC 9.39 (4.50-11.00) K/uL RBC 4.55 (4.00-5.20) m/uL Hgb 13.9 (12.0-16.0) gm/dL Hct 42.7 (33.0-51.0) % MCV 94 (80-100) fL MCH 31 (26-34) pg MCHC 33 (32-36) gm/dL RDW Coeff of Gertrudis 13.3 (11.5-15.5) % Plt Count 229 (140-440) K/uL Neut % (Auto) 88.3 H (42.0-72.0) % Lymph % (Auto) 6.7 L (20-44) % [place] % (Auto) 4.8 (0.0-11.0) % Eos % (Auto) 0.0 (0.0-7.0) % Baso % (Auto) 0.1 (0.0-3.0) % Neut # (Auto) 8.30 H (1.7-7.0) K/uL Lymph # (Auto) 0.60 L (0.90-2.90) K/uL [place] # (Auto) 0.50 (0.00-0.90) K/UL Eos # (Auto) 0.00 (0.00-0.50) K/uL Baso # (Auto) 0.01 (0.00-0.30) K/uL Abs Immat Gran (auto) 0.01 (0.00-0.30) K/uL Imm/Tot Granulo (auto) 0.1 % Sodium 135 (135-149) mmol/L Potassium 4.0 (3.6-5.1) mmol/L Chloride 101 (96-114) mmol/L Carbon Dioxide 27 (20-32) mmol/L Anion Gap 7 (7-15) mEq/L BUN 15 (7-30) mg/dL Creatinine 0.7 (0.5-1.5) mg/dL Estimated Creat Clear 36.15 Estimated GFR 84 ml/min Glucose 174 H (60-115) mg/dL Lactate 0.8 (0.5-1.9) mmol/L Calcium 9.4 (8.4-10.6) mg/dL Total Bilirubin 1.0 (0.1-1.5) mg/dL Direct Bilirubin 0.3 (0.0-0.5) mg/dL AST 30 (12-35) U/L ALT 20 (4-35) U/L Alkaline Phosphatase 85 (40-150) U/L Troponin I < 0.01 (0.01-0.04) ng/mL C-Reactive Protein < 0.5 L (0.5-1.0) mg/dL Total Protein 6.5 (6.0-8.3) g/dL Albumin 4.3 (3.3-5.0) g/dL Lipase 70 (23-300) U/L Urine Color Yellow (Yellow) Urine Appearance Clear (Clear) Urine pH 6.5 (5.0-8.5) Ur Specific Burton 1.010 (1.000-1.030) Urine Protein Negative (Negative) Urine Glucose (UA) Negative (Negative) Urine Ketones Trace A (Negative) Urine Blood Negative (Negative) Urine Nitrite Negative (Negative) Urine Bilirubin Negative (Negative) Urine Urobilinogen 0.2 (0.2-1.0) Ur Leukocyte Esterase Negative (Negative) Urine RBC 0-2 (0-2) Urine WBC 0-2 (0-5) Ur Squamous Epith Cells Few (None-Few) Urine Bacteria None (None) Imaging Data CT scan - abdomen: Attestation: I have reviewed the pertinent imaging results. Radiologist's impression: TECHNIQUE: CT of the abdomen and pelvis acquired with 62 cc Isovue 370 IV contrast. Coronal and sagittal reconstructions. COMPARISON: CT of the abdomen and pelvis 07/04/2024. FINDINGS: Lower chest: Minimal right basilar atelectasis. Few small noncalcified pulmonary nodules in the right middle lobe. Liver: Mild diffuse hepatic steatosis. Multiple hepatic cysts. Gallbladder and bile ducts: Cholecystectomy. Stable mild intra and extrahepatic bile duct dilation likely related to post cholecystectomy state. Spleen: Unremarkable. Pancreas: Unremarkable. Adrenal glands: The right adrenal gland is negative. Stable left adrenal nodules. Kidneys, Ureters, and Bladder: Symmetric enhancement. Bilateral parapelvic renal cysts. No hydronephrosis or ureteral dilation. No obstructing urinary calculi identified. No bladder wall thickening. Reproductive organs: Calcified uterine fibroids. GI tract/Peritoneum: There is a short segment of small bowel incarcerated within a right inguinal hernia as well as a small amount of fluid (series 4 image 44). Multiple upstream dilated fluid-filled small bowel loops with associated mesenteric edema. Findings are compatible with obstruction. Few thick-walled small bowel loops in the left upper quadrant. Distal ileal loops are decompressed. Mild stool burden. Colonic diverticulosis without evidence of diverticulitis. The appendix is not identified. No intraperitoneal free air or definite pneumatosis. Small amount of free fluid in the pelvis. Small volume perihepatic ascites. Vasculature: Aortoiliac vascular calcifications. Stable infrarenal abdominal aortic aneurysm measuring 2.9 cm in AP dimension (series 2, image 65). Mesenteric arteries appear patent. Lymph nodes: No lymphadenopathy. Abdominal Wall: Unremarkable. Bones: Right convex lumbar curve. Degenerative changes of the spine and hips. Chronic L5 superior endplate compression fracture. IMPRESSION: Small bowel obstruction secondary to an incarcerated loop of small bowel within a right inguinal hernia. Associated mesenteric edema and small volume free fluid. Surgical consult is recommended. Discharge Plan Discharge Clinical Impression: Incarcerated right inguinal hernia Patient Disposition: [facility] Condition: Unchanged Prescriptions: No Action bupropion HCl 150 mg tablet extended release 24 hr 150 mg PO DAILY sertraline 50 mg tablet 50 mg PO DAILY metformin 500 mg tablet extended release 24 hr 500 mg PO BID levothyroxine 50 mcg tablet 50 mcg PO DAILY atorvastatin 20 mg tablet 20 mg PO DAILY PreserVision AREDS-2 250-90-40-1 mg capsule 1 tab PO BID cholecalciferol (vitamin D3) 625 mcg (25,000 unit) capsule 625 mcg PO QWEEK ferrous sulfate [iron] 325 mg (65 mg iron) tablet 325 mg PO DAILY hydrocodone-acetaminophen 5-325 mg tablet 1 tab PO Q6H PRN (Reason: pain) Qty: 15 0RF Stand Alone Forms: [email or web address] Info Instructions
[2024-11-30 17:30] LABS: C Reactive Protein* < 0.5 mg/dL (0.5-1.0)
[2024-11-30 17:41] LABS: Troponin I* < 0.01 ng/mL (0.01-0.04)
[2024-11-30 18:19] VITALS: BP 144/76; PULSE 78; RESP 18; TEMP 37.4; O2SAT 95
[2024-11-30 18:52] LABS: Appearance Urine Clear (Clear); Bilirubin Urine Negative (Negative); Blood Urine Negative (Negative); Glucose Urine Negative (Negative); Ketones Urine Trace (Negative); Leukocyte Esterase Urine Negative (Negative); Nitrite Urine Negative (Negative); Protein Urine Negative (Negative); Urobilinogen Urine 0.2 (0.2-1.0); pH Urine 6.5 (5.0-8.5)
[2024-11-30 18:56] LABS: Color Urine Yellow (Yellow)
[2024-11-30 19:17] LABS: RBC Urine 0-2 (0-2); Squamous Epithelial Cell Urine Few (None-Few); WBC Urine 0-2 (0-5)
[2024-11-30 21:07] VITALS: BP 137/75; PULSE 77; RESP 18; TEMP 37.5; O2SAT 94
[2024-11-30] MEDS: LACTATED RINGERS 1000 ML 1,000 ML 75 ML IV (22:23)
[2024-11-30] MEDS: MORPHINE 4 MG/ML INJ 2 MG IVP (22:27)
[2024-11-30 22:53] VITALS: O2SAT 87
[2024-11-30 23:02] VITALS: O2SAT 95
[2024-11-30 23:51] VITALS: BP 138/66; PULSE 74; RESP 18; TEMP 36.8; O2SAT 97
[2024-12-01 01:35] VITALS: BP 138/73; PULSE 77; RESP 16; O2SAT 96
== END 2024-12-01 02:00 | disposition short-term general hospital (02) ==
PROVIDERS: Family Medicine; Emergency Provider Emergency Medicine; PCP Family Medicine
DX: K40.91 Unilateral inguinal hernia, without obstruction or gangrene, recurrent (principal); E11.9 Type 2 diabetes mellitus without complications
CPT/HCPCS: 36415; 74177; 80048; 80076; 81001; 83605; 83690; 84484; 85025; 86140; 87086; 96374; 99284; 99285; J2270; J7120; Q9967

== ENCOUNTER 2024-12-01 01:56 | Outpatient (CLI) | payer MEDICARE, OTHER, SELFPAY | END 2024-12-01 01:57 | disposition home or self-care (01) | LOC: AMB 12-03 11:05 | PROVIDERS: PCP Family Medicine; Visit Provider Emergency Medicine | DX: K40.30 Unilateral inguinal hernia, with obstruction, without gangrene, not specified as recurrent (principal) | CPT/HCPCS: A0425; A0427 ==